=== PATIENT | male | born 1945 | race Caucasian/White ===

== ENCOUNTER 2016-10-15 13:29 | Inpatient (IN) | payer OTHER ==
[2016-10-15 13:43] VITALS: BMI 20.9
--- NOTE | 2016-10-15 13:46 | PDOC ---
History of Present Illness <Yonas Myers - Last Filed: 10/15/16 16:06> - General History Source: Patient Exam Limitations: No Limitations - History of Present Illness Initial Comments: 10/15/16 14:24 The patient is a 71-year-old man, accompanied by his nephew, with a significant past medical history of hypertension and liver cirrhosis who was sent to the emergency department via EMS, by his primary care physician, Dr. Neil Esqueda to rule out hepatic encephalopathy. As per patient's nephew, the patient has not been sober for the past 40 years. He recently stopped drinking approximately 3 weeks ago, secondary to constant diffuse abdominal pain with ascites and jaundice. His nephew also states that the patient has been more confused than usual and his gait is wider. Patient also complains of mild-moderate suprapubic pain, described as a burning sensation, for which he states that he has a ventral hernia. No other complaints. Allergies: No Known Drug Allergies Past Surgical History: None reported. Social History: No tobacco use. EtOH abuse (pint of vodka/day for the past 40 years; recently quit approximately 3 weeks ago). No recreational drug use. Primary Care Physician: Dr. Neil Esqueda <Ashley Yo - Last Filed: 10/15/16 17:44> - General Chief Complaint: Jaundice Stated Complaint: Right groin pain, hernia Time Seen by Provider: 10/15/16 13:45 Past History - Past Medical History HTN: Yes Liver Disease: Yes (CIRRHOSIS.) - Psycho/Social/Smoking Cessation Hx Anxiety: No Suicidal Ideation: No Smoking History: Never smoked Hx Alcohol Use: No Drug/Substance Use Hx: No Substance Use Type: None <Yonas Myers - Last Filed: 10/15/16 16:06> <Ashley Yo - Last Filed: 10/15/16 17:44> - Past Medical History Allergies/Adverse Reactions: Allergies Allergy/AdvReac Type Severity Reaction Status Date / Time No Known Allergies Allergy Verified 10/15/16 13:35 Home Medications: Ambulatory Orders Amlodipine Besylate [Norvasc -] 2.5 mg PO DAILY 10/15/16 Atenolol [Tenormin -] 100 mg PO DAILY 10/15/16 Esomeprazole Mag Trihydrate [NexIUM for SUSP] 40 mg PO BID 10/15/16 Gabapentin 300 mg PO BID 10/15/16 Naproxen/Esomeprazole Mag [Vimovo Dr 500-20 mg Tablet] 1 each PO BID 10/15/16 Tamsulosin HCl [Flomax] 0.4 mg PO DAILY 10/15/16 Review of Systems - Review of Systems Able to Perform ROS?: Yes Comments:: 10/15/16 14:24 GENERAL/CONSTITUTIONAL: No fever or chills. No weakness. HEAD, EYES, EARS, NOSE AND THROAT: No change in vision. No ear pain or discharge. No sore throat. CARDIOVASCULAR: No chest pain or shortness of breath. RESPIRATORY: No cough, wheezing, or hemoptysis. GASTROINTESTINAL: Yes: Abdominal Pain. No nausea, vomiting, diarrhea or constipation. GENITOURINARY: No dysuria, frequency, or change in urination. MUSCULOSKELETAL: No joint or muscle swelling or pain. No neck or back pain. SKIN: Yes: Jaundice. No rash NEUROLOGIC: Yes: Unsteady gait. Confusion. No headache, vertigo, loss of consciousness, or change in strength/sensation. ENDOCRINE: No increased thirst. No abnormal weight change. HEMATOLOGIC/LYMPHATIC: No anemia, easy bleeding, or history of blood clots. ALLERGIC/IMMUNOLOGIC: No hives or skin allergy. <Ashley Yo - Last Filed: 10/15/16 17:44> *Physical Exam - Vital Signs Last Vital Signs Temp Pulse Resp BP Pulse Ox 97.6 F 98 H 18 161/103 100 10/15/16 13:35 10/15/16 13:35 10/15/16 13:35 10/15/16 13:35 10/15/16 13:35 <Yonas Myers - Last Filed: 10/15/16 16:06> - Vital Signs Last Vital Signs Temp Pulse Resp BP Pulse Ox 97.6 F 98 H 18 161/103 98 10/15/16 13:35 10/15/16 13:35 10/15/16 13:35 10/15/16 13:35 10/15/16 13:45 - Physical Exam Comments: 10/15/16 14:25 GENERAL: Awake, alert, and fully oriented, in no acute distress HEAD: No signs of trauma EYES: PERRLA, EOMI, sclera icteric, conjunctiva clear ENT: Auricles normal inspection, hearing grossly normal, nares patent, oropharynx clear without exudates. Moist mucosa NECK: Normal ROM, supple, no lymphadenopathy, JVD, or masses LUNGS: Breath sounds equal, clear to auscultation bilaterally. No wheezes, and no crackles HEART: Irregularly irregular rate and rhythm, no murmurs, rubs or gallops ABDOMEN: Soft, nontender, distended abdomen, normoactive bowel sounds. No guarding, no rebound. No masses EXTREMITIES: Normal range of motion, no edema. No clubbing or cyanosis. No cords, erythema, or tenderness NEUROLOGICAL: Cranial nerves II through XII grossly intact. Normal speech. <Ashley Yo - Last Filed: 10/15/16 17:44> Heart Score/ECG Review #1 10/15/16 13:50 Reviewed and interpreted by Dr. Yonas Myers IMPRESSION: Atrial fibrillation with rapid ventricular response at 102 bpm. <Ashley Yo - Last Filed: 10/15/16 17:44> ED Treatment Course - LABORATORY CBC & Chemistry Diagram: 10/15/16 14:07 10/15/16 14:07 <Yonas Myers - Last Filed: 10/15/16 16:06> - LABORATORY CBC & Chemistry Diagram: 10/15/16 14:07 10/15/16 14:07 - RADIOLOGY Radiograph Interpretation: 10/15/16 15:29 EXAM: CT/ABDOMEN PELVIS CT W/O CONTR Interpreted by Dr. Esvin Darling IMPRESSION: Sequential axial images were obtained from the domes of the diaphragm through the symphysis pubis. The study is severely limited without the use of any contrast material. The lung bases are clear. There is a small amount of ascites throughout the abdomen and pelvis, most marked about the liver. The liver is somewhat enlarged. Ill-defined hypodense masses occupy most of the liver, sparing the lateral segment of the left lobe. This appearance is suspicious for a hepatoma. Clinical and laboratory correlation is recommended. The spleen, pancreas, adrenal glands and kidneys demonstrate no significant abnormalities. Examination of the pelvis demonstrates no evidence of pelvic masses, fluid collections or lymphadenopathy. There is a right inguinal hernia that does contain ascitic fluid. There is no evidence of acute bony pathology. EXAM: CT/HEAD CT WITHOUT CONTRAST Interpreted by Dr. Ilya Peck IMPRESSION: Serial axial images of the brain were obtained from foramen magnum to the cranial vertex without intravenous contrast. The study was supplemented with computer-generated coronal and sagittal reconstruction images. Hearing And Speech Assistant image was reviewed. There is no evidence of acute subarachnoid hemorrhage, acute intra -axial or extra-axial fluid collection consistent with subdural or epidural hematoma. No mass effect, midline shift, acute territorial ischemic changes, herniation or edema is present. Normal sarkar matter white matter differentiation. Loss of volume of the brain parenchyma with involutional changes Examination of the bone windows show no fracture. The visualized paranasal sinuses and mastoid air cells are clear. Symmetrical ocular globes. Unremarkable retro-orbital soft tissues. <Ashley Yo - Last Filed: 10/15/16 17:44> Medical Decision Making - Medical Decision Making 10/15/16 15:[address] Dmitri Dudley. 10/15/16 15:[address] Dmitri Dudley. Case was discussed. Accepts case. <Ashley Yo - Last Filed: 10/15/16 17:44> *DC/Admit/Observation/Transfer - Discharge Dispostion Admit: Yes - Attestations Physician Attestion: 10/15/16 13:46 I, Dr. Yonas Myers, attest that this document has been prepared under my direction and personally reviewed by me in its entirety. I further attest, that it accurately reflects all work, treatment, procedures and medical decision -making performed by me. <Yonas Myers - Last Filed: 10/15/16 16:06> - Attestations Scribe Attestion: 10/15/16 14:25 Documentation prepared by Ashley Yo, acting as medical office assistant for Yonas Myers DO. <Ashley Yo - Last Filed: 10/15/16 17:44> Diagnosis at time of Disposition: Hepatocellular carcinoma, Alcoholism Cirrhosis Qualifiers: Hepatic cirrhosis type: alcoholic cirrhosis Ascites presence: with ascites Qualified Code(s): K70.31 - Alcoholic cirrhosis of liver with ascites Liver failure Qualifiers: Liver failure chronicity: subacute Hepatic coma status: without hepatic coma Qualified Code(s): K72.00 - Acute and subacute hepatic failure without coma - Discharge Dispostion Condition at time of disposition: Unchanged/Unknown
[2016-10-15 14:45] LABS: BASOPHIL 0.6 % (0-2.0); EOSINOPHIL 0.4 % (0-4.5); MCH 31.9 pg (25.7-33.7); MCHC 33.2 g/dl (32.0-35.9); MEAN CELL VOLUME 95.9 fl (80-96); MEAN PLT VOLUME 8.9 fl (7.5-11.1); NEUTROPHILS 83.6 % (42.8-82.8); PLATELET COUNT 574 K/MM3 (134-434); RDW 16.6 % (11.9-15.9); WHITE BLOOD COUNT 12.7 K/mm3 (4.0-10.0)
[2016-10-15 14:57] LABS: INR 1.24 (0.82-1.09); PROTHROMBIN TIME (PATIENT) 13.7 SEC (9.98-11.88)
[2016-10-15 15:00] LABS: ACTIVATED PTT 31.1 SECONDS (26.9-34.4)
[2016-10-15 15:24] LABS: ALBUMIN 2.1 g/dl (3.4-5.0); ANION GAP 11 (8-16); BILIRUBIN,DIRECT 5.4 mg/dL (0.0-0.2); BILIRUBIN,TOTAL 6.6 mg/dL (0.2-1.0); CALCIUM 8.9 mg/dL (8.5-10.1); CO2 23 mmol/L (21-32); GLUCOSE,RANDOM 112 mg/dL (74-106); SGPT/ALT 371 U/L (12-78); TOT PROT 6.7 g/dl (6.4-8.2)
[2016-10-15 15:27] LABS: ALK PHOS 969 U/L (45-117); BILIRUBIN,TOTAL 6.7 mg/dL (0.2-1.0); TOT PROT 6.8 g/dl (6.4-8.2)
[2016-10-15 15:32] LABS: URINE APPEARANCE CLEAR; URINE BLOOD NEGATIVE (NEGATIVE); URINE COLOR AMBER; URINE GLUCOSE (UA) NEGATIVE (NEGATIVE); URINE KETONE NEGATIVE (NEGATIVE); URINE LEUK ESTERASE NEGATIVE (NEGATIVE); URINE NITRITE NEGATIVE (NEGATIVE); URINE PROTEIN NEGATIVE (NEGATIVE); URINE UROBILINOGEN 2.0 E.U/dl E.U./dl (0.2-1.0)
[2016-10-15 15:32] LABS: SGOT/AST 860 U/L (15-37)
[2016-10-15] MEDS ORDERED: LORAZEPAM CARPU-JECT 2 MG/ML DISP.SYRIN IM PRN (15:43)
[2016-10-15 15:46] LABS: ALCOHOL < 5.0 mg/dl (0-5)
[2016-10-15] MEDS: amLODIPine BESYLATE 5 MG TABLET (FP) PO SCH (15:56)
[2016-10-15] MEDS: PANTOPRAZOLE 40 MG TABLET (FP) PO SCH (15:56)
[2016-10-15 16:04] LABS: URINE MARIJUANA THC NEGATIVE ng/ml (CUTOFF=50)
--- NOTE | 2016-10-15 19:18 | CON.GI ---
Consult Consult Specialty:: gastroenterology Referred by:: Dr Dudley/ Yin - History of Present Illness History of Present Illness: The patient is a 71-year-old man, accompanied by his nephew, with a significant past medical history of hypertension and liver cirrhosis who was sent to the emergency department via EMS, by his primary care physician, Dr. Neil Esqueda to rule out hepatic encephalopathy. As per patient's nephew, the patient has not been sober for the past 40 years. He recently stopped drinking approximately 3 weeks ago, secondary to constant diffuse abdominal pain with ascites and jaundice. His nephew also states that the patient has been more confused than usual and his gait is wider. Patient also complains of mild-moderate suprapubic pain, described as a burning sensation, for which he states that he has a ventral hernia. No other complaints. This evening he has no complaints and is asymptomatic - Alcohol/Substance Use Hx Alcohol Use: No - Smoking History Smoking history: Never smoked Have you smoked in the past 12 months: No Home Medications - Allergies Allergies/Adverse Reactions: Allergies Allergy/AdvReac Type Severity Reaction Status Date / Time No Known Allergies Allergy Verified 10/15/16 13:35 - Home Medications Home Medications: Ambulatory Orders Amlodipine Besylate [Norvasc -] 2.5 mg PO DAILY 10/15/16 Atenolol [Tenormin -] 100 mg PO DAILY 10/15/16 Esomeprazole Mag Trihydrate [NexIUM for SUSP] 40 mg PO BID 10/15/16 Gabapentin 300 mg PO BID 10/15/16 Naproxen/Esomeprazole Mag [Vimovo Dr 500-20 mg Tablet] 1 each PO BID 10/15/16 Tamsulosin HCl [Flomax] 0.4 mg PO DAILY 10/15/16 Review of Systems - Review of Systems Constitutional: denies: Fever Eyes: denies: Blind Spots Neck: denies: Decreased ROM Cardiovascular: denies: Chest Pain Respiratory: denies: Cough Gastrointestinal: denies: Abdominal Pain, Bloating, Constipation, Diarrhea, Dysphagia, Indigestion, Melena, Nausea, Rectal Bleeding, Vomiting, Vomiting Blood Physical Exam-GI Vital Signs: Vital Signs Temperature 97.8 F 10/15/16 17:31 Pulse Rate 103 H 10/15/16 17:31 Respiratory Rate 20 10/15/16 17:31 Blood Pressure 119/74 10/15/16 17:31 O2 Sat by Pulse Oximetry (%) 100 10/15/16 17:31 Constitutional: Yes: No Distress Eyes: Yes: Sclera Icterus HENT: No: Atraumatic Neck: No: Supple Cardiovascular: No: Regular Rate and Rhythm Respiratory: No: CTA Bilaterally ...Palpate: Yes: Hepatomegaly (-about 12 fingerbreaths below th right subcostal margin), Soft. No: Firm/Rigid, Guarding, Splenomegaly, Tenderness, Rebound ...Percussion: Yes: Dullness Neurological: Yes: Alert, Oriented Labs: INR, PTT INR 1.24 (0.82-1.09) H 10/15/16 14:07 CBC,CMP WBC 12.7 K/mm3 (4.0-10.0) H 10/15/16 14:07 RBC 3.65 M/mm3 (4.00-5.60) L 10/15/16 14:07 Hgb 11.6 GM/dL (11.7-16.9) L 10/15/16 14:07 Hct 35.0 % (35.4-49) L 10/15/16 14:07 MCV 95.9 fl (80-96) 10/15/16 14:07 MCHC 33.2 g/dl (32.0-35.9) 10/15/16 14:07 RDW 16.6 % (11.9-15.9) H 10/15/16 14:07 Plt Count 574 K/MM3 (134-434) H 10/15/16 14:07 MPV 8.9 fl (7.5-11.1) 10/15/16 14:07 Neutrophils % 83.6 % (42.8-82.8) H 10/15/16 14:07 Lymphocytes % 9.6 % (8-40) 10/15/16 14:07 Monocytes % 5.8 % (3.8-10.2) 10/15/16 14:07 Eosinophils % 0.4 % (0-4.5) 10/15/16 14:07 Basophils % 0.6 % (0-2.0) 10/15/16 14:07 Sodium 135 mmol/L (136-145) L 10/15/16 14:07 Potassium 4.0 mmol/L (3.5-5.1) 10/15/16 14:07 Chloride 101 mmol/L (98-107) 10/15/16 14:07 Carbon Dioxide 23 mmol/L (21-32) 10/15/16 14:07 Anion Gap 11 (8-16) 10/15/16 14:07 BUN 14 mg/dL (7-18) 10/15/16 14:07 Creatinine 1.0 mg/dL (0.7-1.3) 10/15/16 14:07 Creat Clearance w eGFR > 60 (>60) 10/15/16 14:07 Random Glucose 112 mg/dL (74-106) H 10/15/16 14:07 Calcium 8.9 mg/dL (8.5-10.1) 10/15/16 14:07 Total Bilirubin 6.7 mg/dL (0.2-1.0) H 10/15/16 14:07 Direct Bilirubin 5.4 mg/dL (0.0-0.2) H 10/15/16 14:07 AST 860 U/L (15-37) H 10/15/16 14:07 ALT 371 U/L (12-78) H 10/15/16 14:07 Alkaline Phosphatase 969 U/L (45-117) H 10/15/16 14:07 Ammonia 43.6 umol/L (11-32) H 10/15/16 14:07 Total Protein 6.8 g/dl (6.4-8.2) 10/15/16 14:07 Albumin 2.1 g/dl (3.4-5.0) L 10/15/16 14:07 Lipase 69 U/L (73-393) L 10/15/16 14:07 Imaging - Results Cat Scan: Image Reviewed (large masses occupying the entire liver) Problem List - Problems (1) Neoplasm of liver Assessment/Plan: most likely hepatoma R> afp LEVEL if greater than 200 this is diagnostic Hep profile CEA, ca19-9 ammonia level
[2016-10-15] MEDS: METOPROLOL TARTRATE 50 MG TABLET (FP) PO SCH (21:10)
[2016-10-15] MEDS ORDERED: GABAPENTIN 300 MG CAPSULE (FP) PO SCH (22:00)
[2016-10-16] MEDS: TAMSULOSIN HCL 0.4 MG CAP.ER.24H (FP) PO SCH (07:55)
--- NOTE | 2016-10-16 11:15 | HP ---
Admitting History and Physical - Primary Care Physician PCP: Dmitri Dudley - Admission Chief Complaint: NEW ONSET TRANSAMINITIS/LIVER CANCER History of Present Illness: 71 Y/O ALCOHOL DEPENDENCE NOW 3 WEEKS WITHOUT A DRINK PRESENTS WITH WEAKNESS, ABD PAIN, LOSS OF APPETITE AND WEIGHT FOUND TO HAVE LIVER HEPATOMA ON CT SCAN. History Source: Medical Record - Smoking History Smoking history: Never smoked Have you smoked in the past 12 months: No - Alcohol/Substance Use Hx Alcohol Use: No Home Medications - Allergies Allergies/Adverse Reactions: Allergies Allergy/AdvReac Type Severity Reaction Status Date / Time No Known Allergies Allergy Verified 10/15/16 13:35 - Home Medications Home Medications: Ambulatory Orders Amlodipine Besylate [Norvasc -] 2.5 mg PO DAILY 10/15/16 Atenolol [Tenormin -] 100 mg PO DAILY 10/15/16 Esomeprazole Mag Trihydrate [NexIUM for SUSP] 40 mg PO BID 10/15/16 Gabapentin 300 mg PO BID 10/15/16 Naproxen/Esomeprazole Mag [Vimovo Dr 500-20 mg Tablet] 1 each PO BID 10/15/16 Tamsulosin HCl [Flomax] 0.4 mg PO DAILY 10/15/16 Review of Systems - Review of Systems Constitutional: reports: Lethargy, Loss of Appetite, Unintentional Wgt. Loss, Weakness Eyes: reports: No Symptoms HENT: reports: No Symptoms Neck: reports: No Symptoms Cardiovascular: reports: No Symptoms Respiratory: reports: No Symptoms Gastrointestinal: reports: Abdominal Pain Genitourinary: reports: No Symptoms Musculoskeletal: reports: Muscle Weakness Integumentary: reports: No Symptoms Neurological: reports: Parasthesia, Pre-Existing Deficit, Tremors, Weakness Endocrine: reports: No Symptoms Hematology/Lymphatic: reports: No Symptoms Psychiatric: reports: No Symptoms Physical Examination Vital Signs: Vital Signs Temperature 98.5 F 10/15/16 22:00 Pulse Rate 100 H 10/15/16 22:00 Respiratory Rate 18 10/15/16 22:00 Blood Pressure 120/78 10/15/16 22:00 O2 Sat by Pulse Oximetry (%) 98 10/15/16 22:00 Constitutional: Yes: Mild Distress Eyes: Yes: WNL HENT: Yes: WNL Neck: Yes: WNL Cardiovascular: Yes: WNL Respiratory: Yes: WNL Gastrointestinal: Yes: Distention, Tenderness Renal/: Yes: Other Musculoskeletal: Yes: Muscle Weakness Extremities: Yes: WNL Edema: No Peripheral Pulses WNL: Yes Integumentary: Yes: WNL Wound/Incision: Yes: Clean/Dry Neurological: Yes: Pre-Existing Deficit, Tremors, Unsteady Gait, Weakness ...Motor Strength: LLE, RLE Psychiatric: Yes: Other Imaging - Results Cat Scan: Report Reviewed Problem List - Problems (1) Alcoholism Code(s): F10.20 - ALCOHOL DEPENDENCE, UNCOMPLICATED (2) Cirrhosis Code(s): K74.60 - UNSPECIFIED CIRRHOSIS OF LIVER Qualifiers: Hepatic cirrhosis type: alcoholic cirrhosis Ascites presence: with ascites Qualified Code(s): K70.31 - Alcoholic cirrhosis of liver with ascites (3) Hepatocellular carcinoma Code(s): C22.0 - LIVER CELL CARCINOMA (4) Liver failure Code(s): K72.90 - HEPATIC FAILURE, UNSPECIFIED WITHOUT COMA Qualifiers: Liver failure chronicity: subacute Hepatic coma status: without hepatic coma Qualified Code(s): K72.00 - Acute and subacute hepatic failure without coma Assessment/Plan GI WORKUP IN PROGRESS ONCOLOGY EVAL SEIZURE AND NEURO CHECKS ATIVAN PRN WILL NEED NUTRITION EVAL THIAMINE STARTED
[2016-10-16] MEDS: PANTOPRAZOLE 40 MG TABLET (FP) PO SCH (12:17)
[2016-10-16] MEDS: METOPROLOL TARTRATE 50 MG TABLET (FP) PO SCH ×2 (12:18→22:58)
[2016-10-16] MEDS: amLODIPine BESYLATE 5 MG TABLET (FP) PO SCH (12:18)
--- NOTE | 2016-10-16 14:49 | CONSULT ---
Consult Consult Specialty:: Nephrology Reason for Consultation:: hyponatremia and fluid management - History of Present Illness Chief Complaint: sent in for increased confusion History of Present Illness: Pt is a 71 year old male with pmhx of liver cirrhosis and htn who was sent in for worsening of mental status. He has history of etoh abuse. He has been sober for about 3 weeks. He was found to be hyponatremic and I was called to evaluate him. He has had abdominal pain. PT does have ascites and jaundice. Pt was accompanied by family on admission. He is becoming increasingly confused. He denies fevers or chills. He complains of suprapubic discomfort. - History Source History Provided By: Family Member, Medical Record - Past Medical History Cardio/Vascular: Yes: HTN Hepatobiliary: Yes: Cirrhosis - Alcohol/Substance Use Hx Alcohol Use: No - Smoking History Smoking history: Never smoked Have you smoked in the past 12 months: No Home Medications - Allergies Allergies/Adverse Reactions: Allergies Allergy/AdvReac Type Severity Reaction Status Date / Time No Known Allergies Allergy Verified 10/15/16 13:35 - Home Medications Home Medications: Ambulatory Orders Amlodipine Besylate [Norvasc -] 2.5 mg PO DAILY 10/15/16 Atenolol [Tenormin -] 100 mg PO DAILY 10/15/16 Esomeprazole Mag Trihydrate [NexIUM for SUSP] 40 mg PO BID 10/15/16 Gabapentin 300 mg PO BID 10/15/16 Naproxen/Esomeprazole Mag [Vimovo Dr 500-20 mg Tablet] 1 each PO BID 10/15/16 Tamsulosin HCl [Flomax] 0.4 mg PO DAILY 10/15/16 Family Disease History - Family Disease History Family History: Denies Review of Systems - Review of Systems Constitutional: reports: No Symptoms Eyes: reports: No Symptoms HENT: reports: No Symptoms Neck: reports: No Symptoms Cardiovascular: reports: No Symptoms Respiratory: reports: No Symptoms Gastrointestinal: reports: Abdominal Pain Genitourinary: reports: No Symptoms Musculoskeletal: reports: No Symptoms Neurological: reports: No Symptoms Endocrine: reports: No Symptoms Hematology/Lymphatic: reports: No Symptoms Physical Exam Vital Signs: Vital Signs Temperature 98.5 F 10/15/16 22:00 Pulse Rate 96 H 10/16/16 10:00 Respiratory Rate 18 10/16/16 10:00 Blood Pressure 116/80 10/16/16 10:00 O2 Sat by Pulse Oximetry (%) 98 10/15/16 22:00 Constitutional: Yes: Calm Eyes: Yes: Sclera Icterus HENT: Yes: Atraumatic Neck: Yes: Supple Cardiovascular: Yes: S1, S2 Respiratory: Yes: CTA Bilaterally Gastrointestinal: Yes: Ascites Renal/: Yes: WNL Musculoskeletal: Yes: WNL Edema: No Neurological: Yes: Oriented Psychiatric: Yes: Oriented Labs: Laboratory Tests 10/15/16 10/15/16 10/15/16 02:30 14:07 14:07 WBC 12.7 H Hgb 11.6 L Plt Count 574 H Sodium 135 L Potassium 4.0 Chloride 101 Carbon Dioxide 23 Anion Gap 11 BUN 14 Creatinine 1.0 Creat Clearance w eGFR > 60 Random Glucose 112 H Calcium 8.9 Total Bilirubin 6.7 H Alkaline Phosphatase 969 H Ammonia Tumor Marker AFP Carcinoembryonic Ag Pending CA 19-9 Antigen Urine Color Urine Appearance Urine pH Ur Specific [place] Urine Protein Urine Glucose (UA) Urine Ketones Urine Blood Urine Nitrite Urine Bilirubin Urine Urobilinogen Ur Leukocyte Esterase 10/15/16 10/15/16 10/15/16 14:07 14:07 15:22 WBC Hgb Plt Count Sodium Potassium Chloride Carbon Dioxide Anion Gap BUN Creatinine Creat Clearance w eGFR Random Glucose Calcium Total Bilirubin 6.6 H Alkaline Phosphatase Ammonia 43.6 H Tumor Marker AFP Carcinoembryonic Ag CA 19-9 Antigen Urine Color [place] Urine Appearance Clear Urine pH 6.0 Ur Specific [place] 1.015 Urine Protein Negative Urine Glucose (UA) Negative Urine Ketones Negative Urine Blood Negative Urine Nitrite Negative Urine Bilirubin 2.0 Urine Urobilinogen 2.0 e.u/dl Ur Leukocyte Esterase Negative 10/16/16 06:35 WBC Hgb Plt Count Sodium Potassium Chloride Carbon Dioxide Anion Gap BUN Creatinine Creat Clearance w eGFR Random Glucose Calcium Total Bilirubin Alkaline Phosphatase Ammonia Tumor Marker AFP Pending Carcinoembryonic Ag CA 19-9 Antigen Pending Urine Color Urine Appearance Urine pH Ur Specific [place] Urine Protein Urine Glucose (UA) Urine Ketones Urine Blood Urine Nitrite Urine Bilirubin Urine Urobilinogen Ur Leukocyte Esterase Imaging - Results Cat Scan: Report Reviewed (ascites) Problem List - Problems (1) Alcoholism Code(s): F10.20 - ALCOHOL DEPENDENCE, UNCOMPLICATED (2) Cirrhosis Code(s): K74.60 - UNSPECIFIED CIRRHOSIS OF LIVER Qualifiers: Hepatic cirrhosis type: alcoholic cirrhosis Ascites presence: with ascites Qualified Code(s): K70.31 - Alcoholic cirrhosis of liver with ascites (3) Hepatocellular carcinoma Code(s): C22.0 - LIVER CELL CARCINOMA (4) Liver failure Code(s): K72.90 - HEPATIC FAILURE, UNSPECIFIED WITHOUT COMA Qualifiers: Liver failure chronicity: subacute Hepatic coma status: without hepatic coma Qualified Code(s): K72.00 - Acute and subacute hepatic failure without coma (6) Hyponatremia Code(s): E87.1 - HYPO-OSMOLALITY AND HYPONATREMIA Assessment/Plan Current Medications Generic Name Dose Route Start Last Admin Trade Name Freq PRN Reason Stop Dose Admin Amlodipine Besylate 5 mg 10/15/16 15:45 10/16/16 12:18 Norvasc - PO 5 mg DAILY THIEN Administration Lorazepam 1 mg 10/15/16 15:43 Ativan Injection - IM Q6H PRN ANXIETY Metoprolol Tartrate 50 mg 10/15/16 22:00 10/16/16 12:18 Lopressor - PO 50 mg BID THIEN Administration Pantoprazole Sodium 40 mg 10/15/16 15:45 10/16/16 12:17 Protonix - PO 40 mg DAILY THIEN Administration Tamsulosin HCl 0.4 mg 10/16/16 08:30 10/16/16 07:55 Flomax - PO 0.4 mg DAILY@0830 THIEN Administration Impression 1. hyponatremia mild 2. liver cirrhosis 3. hx of etoh abuse 4. HTN Plan - cont current meds - repeat labs in am - check UA - sodium is mildly low - follow up GI - will assess for diuretics in am - follow up hep studies - follow up tumor markers Dr Ramsey
--- NOTE | 2016-10-16 19:30 | PN ---
GI Progress Note Subjective: comfortable, no new complaints, AFP levels pending - Objective Vital Signs: Vital Signs Temperature 98.3 F 10/16/16 18:37 Pulse Rate 107 H 10/16/16 18:37 Respiratory Rate 20 10/16/16 18:37 Blood Pressure 133/80 10/16/16 18:37 O2 Sat by Pulse Oximetry (%) 94 L 10/16/16 09:00 Constitutional: Well Nourished Eyes: Yes: Conjunctiva Clear HENT: Yes: Atraumatic, Tonsillar Exudate Cardiovascular: Yes: Regular Rate and Rhythm Respiratory: Yes: CTA Bilaterally ...Palpate: Yes: Soft. No: Firm/Rigid, Guarding, Hepatomegaly, Mass, Pulsatile Mass, Splenomegaly, Tenderness Labs: INR, PTT INR 1.24 (0.82-1.09) H 10/15/16 14:07 Problem List - Problems (1) Neoplasm of liver Assessment/Plan: R> await AFP levels
--- NOTE | 2016-10-16 20:22 | CONSULT ---
Consult - text type - Consultation Consultation Note: The patient is a 71-year-old man, with a significant past medical history of hypertension and liver cirrhosis who was admitted with presumed hepatic encephalopathy. He recently stopped drinking approximately 3 weeks ago, secondary to constant diffuse abdominal pain with ascites and jaundice. His nephew noted that the patient has been more confused than usual and his gait is wider. Patient also complains of mild-moderate suprapubic pain, described as a burning sensation, for which he states that he has a ventral hernia. No other complaints. Allergies: No Known Drug Allergies Past Surgical History: None reported. Social History: No tobacco use. EtOH abuse (pint of vodka/day for the past 40 years; recently quit approximately 3 weeks ago). No recreational drug use. Primary Care Physician: Dr. Neil Esqueda - Past Medical History HTN: Yes Liver Disease: Yes (CIRRHOSIS.) - Psycho/Social/Smoking Cessation Hx nonsmoker alcoholic - Past Medical History Allergies/Adverse Reactions: Allergies Allergy/AdvReac Type Severity Reaction Status Date / Time No Known Allergies Allergy Verified 10/15/16 13:35 Home Medications: Ambulatory Orders Amlodipine Besylate [Norvasc -] 2.5 mg PO DAILY 10/15/16 Atenolol [Tenormin -] 100 mg PO DAILY 10/15/16 Esomeprazole Mag Trihydrate [NexIUM for SUSP] 40 mg PO BID 10/15/16 Gabapentin 300 mg PO BID 10/15/16 Naproxen/Esomeprazole Mag [Vimovo Dr 500-20 mg Tablet] 1 each PO BID 10/15/16 Tamsulosin HCl [Flomax] 0.4 mg PO DAILY 10/15/16 - Vital Signs Last Vital Signs Temp Pulse Resp BP Pulse Ox 98.3 F 107 H 20 133/80 94 L 10/16/16 18:37 10/16/16 18:37 10/16/16 18:37 10/16/16 18:37 10/16/16 09:00 Cor: RSR, No murmurs, No gallops Lungs: Clear to P&A Abd: Soft, Normal bowel sounds, ascites++ Ext:No significant edema Skin: No rashes, Integument intact Interpreted by Dr. Esvin Darling IMPRESSION: Sequential axial images were obtained from the domes of the diaphragm through the symphysis pubis. The study is severely limited without the use of any contrast material. The lung bases are clear. There is a small amount of ascites throughout the abdomen and pelvis, most marked about the liver. The liver is somewhat enlarged. Ill-defined hypodense masses occupy most of the liver, sparing the lateral segment of the left lobe. This appearance is suspicious for a hepatoma. Clinical and laboratory correlation is recommended. The spleen, pancreas, adrenal glands and kidneys demonstrate no significant abnormalities. Examination of the pelvis demonstrates no evidence of pelvic masses, fluid collections or lymphadenopathy. There is a right inguinal hernia that does contain ascitic fluid. There is no evidence of acute bony pathology. EXAM: CT/HEAD CT WITHOUT CONTRAST Interpreted by Dr. Ilya Peck IMPRESSION: Serial axial images of the brain were obtained from foramen magnum to the cranial vertex without intravenous contrast. The study was supplemented with computer-generated coronal and sagittal reconstruction images. Faculty Dean image was reviewed. There is no evidence of acute subarachnoid hemorrhage, acute intra -axial or extra-axial fluid collection consistent with subdural or epidural hematoma. No mass effect, midline shift, acute territorial ischemic changes, herniation or edema is present. Normal sarkar matter white matter differentiation. Loss of volume of the brain parenchyma with involutional changes Examination of the bone windows show no fracture. The visualized paranasal sinuses and mastoid air cells are clear. Symmetrical ocular globes. Unremarkable retro-orbital soft tissues. A/P 71 y/o male with presumed alcoholic cirrhosis , admitted with hepatic encephalopathy CT scan revealed nodular cirrhotic liver suspicious for hepatoma CR 1 AFP is pending Albumin --2.1 INR/PTT/CBC --relatively preserved LFTs--ALT 800s Await AFP MAy need MRI abdomen poor performance status check bood cultures/urine cultures
[2016-10-17] MEDS ORDERED: PT OWN MED DRAWER 7, Y5N ONE (03:29)
[2016-10-17] MEDS: TAMSULOSIN HCL 0.4 MG CAP.ER.24H (FP) PO SCH (08:30)
[2016-10-17] MEDS: PANTOPRAZOLE 40 MG TABLET (FP) PO SCH (09:46)
[2016-10-17] MEDS: MULTIVITAMINS (DAILY MVI) TABLET (FP) PO SCH (09:46)
[2016-10-17] MEDS: METOPROLOL TARTRATE 50 MG TABLET (FP) PO SCH ×2 (09:46→21:21)
[2016-10-17] MEDS: FOLIC ACID 1 MG TABLET (FP) PO SCH (09:46)
[2016-10-17] MEDS: amLODIPine BESYLATE 5 MG TABLET (FP) PO SCH (09:46)
--- NOTE | 2016-10-17 12:08 | PN ---
Progress Note, Physician Chief Complaint: patient seen and examined awake alert wants to go home - Current Medication List Current Medications: Active Medications Amlodipine Besylate (Norvasc -) 5 mg PO DAILY [facility] Last Admin: 10/17/16 09:46 Dose: 5 mg Folic Acid (Folic Acid -) 1 mg PO DAILY [facility] Last Admin: 10/17/16 09:46 Dose: 1 mg Lorazepam (Ativan Injection -) 1 mg IM Q6H PRN PRN Reason: ANXIETY Metoprolol Tartrate (Lopressor -) 50 mg PO BID [facility] Last Admin: 10/17/16 09:46 Dose: 50 mg Multivitamins/Minerals/Vitamin C (Tab-A-Vit -) 1 tab PO DAILY [facility] Last Admin: 10/17/16 09:46 Dose: 1 tab Pantoprazole Sodium (Protonix -) 40 mg PO DAILY [facility] Last Admin: 10/17/16 09:46 Dose: 40 mg Tamsulosin HCl (Flomax -) 0.4 mg PO DAILY@0830 [facility] Last Admin: 10/17/16 08:30 Dose: 0.4 mg - Objective Vital Signs: Vital Signs Temperature 98.8 F 10/17/16 06:15 Pulse Rate 91 H 10/17/16 06:15 Respiratory Rate 20 10/17/16 06:15 Blood Pressure 105/60 10/17/16 06:15 O2 Sat by Pulse Oximetry (%) 95 10/16/16 21:00 Eyes: Yes: Sclera Icterus Cardiovascular: Yes: Regular Rate and Rhythm, S1, S2 Respiratory: Yes: CTA Bilaterally Gastrointestinal: Yes: Soft, Hepatomegaly Neurological: Yes: Alert, Oriented Labs: INR, PTT INR 1.24 (0.82-1.09) H 10/15/16 14:07 Problem List - Problems (1) Hepatocellular carcinoma Assessment/Plan: most likely hepatoma AFP and CA-[id number] elevated MRI of abdomen heme consult noted gi on board Code(s): C22.0 - LIVER CELL CARCINOMA (2) Liver failure Assessment/Plan: see above Code(s): K72.90 - HEPATIC FAILURE, UNSPECIFIED WITHOUT COMA Qualifiers: Liver failure chronicity: subacute Hepatic coma status: without hepatic coma Qualified Code(s): K72.00 - Acute and subacute hepatic failure without coma (3) Hyponatremia Assessment/Plan: repeat sodium today renal on board Code(s): E87.1 - HYPO-OSMOLALITY AND HYPONATREMIA
[2016-10-17 14:11] LABS: ANION GAP 8 (8-16); BILIRUBIN,TOTAL 7.2 mg/dL (0.2-1.0); CALCIUM 8.8 mg/dL (8.5-10.1); CO2 28 mmol/L (21-32); CREATININE 0.9 mg/dL (0.7-1.3); GLUCOSE,RANDOM 101 mg/dL (74-106); SGOT/AST 944 U/L (15-37); SGPT/ALT 397 U/L (12-78); TOT PROT 6.3 g/dl (6.4-8.2)
[2016-10-17 14:23] LABS: ALK PHOS 1001 U/L (45-117)
--- NOTE | 2016-10-17 16:02 | PN ---
Progress Note, Physician History of Present Illness: Pt seen and examined. He is awake and appears comfortable. he denies shortness of breath. - Current Medication List Current Medications: Active Medications Amlodipine Besylate (Norvasc -) 5 mg PO DAILY [facility] Last Admin: 10/17/16 09:46 Dose: 5 mg Folic Acid (Folic Acid -) 1 mg PO DAILY [facility] Last Admin: 10/17/16 09:46 Dose: 1 mg Lorazepam (Ativan Injection -) 1 mg IM Q6H PRN PRN Reason: ANXIETY Metoprolol Tartrate (Lopressor -) 50 mg PO BID [facility] Last Admin: 10/17/16 09:46 Dose: 50 mg Multivitamins/Minerals/Vitamin C (Tab-A-Vit -) 1 tab PO DAILY [facility] Last Admin: 10/17/16 09:46 Dose: 1 tab Pantoprazole Sodium (Protonix -) 40 mg PO DAILY [facility] Last Admin: 10/17/16 09:46 Dose: 40 mg Tamsulosin HCl (Flomax -) 0.4 mg PO DAILY@0830 [facility] Last Admin: 10/17/16 08:30 Dose: 0.4 mg - Objective Vital Signs: Vital Signs Temperature 98.3 F 10/17/16 14:43 Pulse Rate 101 H 10/17/16 14:43 Respiratory Rate 20 10/17/16 14:43 Blood Pressure 127/65 10/17/16 14:43 O2 Sat by Pulse Oximetry (%) 95 10/16/16 21:00 Constitutional: Yes: Calm Eyes: Yes: Sclera Icterus HENT: Yes: Atraumatic Cardiovascular: Yes: WNL, S1, S2 Gastrointestinal: Yes: Ascites Genitourinary: Yes: WNL Musculoskeletal: Yes: WNL Edema: No Integumentary: Yes: Jaundice Neurological: Yes: Oriented Labs: CBC, BMP 10/17/16 13:20 INR, PTT INR 1.24 (0.82-1.09) H 10/15/16 14:07 Problem List - Problems (1) Alcoholism Code(s): F10.20 - ALCOHOL DEPENDENCE, UNCOMPLICATED (2) Cirrhosis Code(s): K74.60 - UNSPECIFIED CIRRHOSIS OF LIVER Qualifiers: Hepatic cirrhosis type: alcoholic cirrhosis Ascites presence: with ascites Qualified Code(s): K70.31 - Alcoholic cirrhosis of liver with ascites (3) Hepatocellular carcinoma Code(s): C22.0 - LIVER CELL CARCINOMA (4) Liver failure Code(s): K72.90 - HEPATIC FAILURE, UNSPECIFIED WITHOUT COMA Qualifiers: Liver failure chronicity: subacute Hepatic coma status: without hepatic coma Qualified Code(s): K72.00 - Acute and subacute hepatic failure without coma (6) Hyponatremia Code(s): E87.1 - HYPO-OSMOLALITY AND HYPONATREMIA Assessment/Plan Current Medications Generic Name Dose Route Start Last Admin Trade Name Freq PRN Reason Stop Dose Admin Amlodipine Besylate 5 mg 10/15/16 15:45 10/17/16 09:46 Norvasc - PO 5 mg DAILY [facility] Administration Folic Acid 1 mg 10/17/16 10:00 10/17/16 09:46 Folic Acid - PO 1 mg DAILY [facility] Administration Lorazepam 1 mg 10/15/16 15:43 Ativan Injection - IM Q6H PRN ANXIETY Metoprolol Tartrate 50 mg 10/15/16 22:00 10/17/16 09:46 Lopressor - PO 50 mg BID [facility]IEN Administration Multivitamins/Minerals/Vitamin C 1 tab 10/17/16 10:00 10/17/16 09:46 Tab-A-Vit - PO 1 tab DAILY [facility] Administration Pantoprazole Sodium 40 mg 10/15/16 15:45 10/17/16 09:46 Protonix - PO 40 mg DAILY [facility] Administration Tamsulosin HCl 0.4 mg 10/16/16 08:30 10/17/16 08:30 Flomax - PO 0.4 mg DAILY@0830 [facility] Administration Laboratory Tests 10/15/16 10/15/16 10/16/16 14:07 15:22 06:35 Sodium Tumor Marker AFP 96.8 H CA 19-9 Antigen 65 H Urine Color Sisi Urine Appearance Clear Urine pH 6.0 Ur Specific [place] 1.015 Urine Protein Negative Urine Glucose (UA) Negative Urine Ketones Negative Urine Blood Negative Urine Nitrite Negative Urine Bilirubin 2.0 Urine Urobilinogen 2.0 e.u/dl Ur Leukocyte Esterase Negative Hepatitis A Ab Total Pending Hep Bs Antigen Pending Hep Bs Antibody Pending Hep B Core Total Ab Pending 10/17/16 13:20 Sodium 135 L Tumor Marker AFP CA 19-9 Antigen Urine Color Urine Appearance Urine pH Ur Specific [place] Urine Protein Urine Glucose (UA) Urine Ketones Urine Blood Urine Nitrite Urine Bilirubin Urine Urobilinogen Ur Leukocyte Esterase Hepatitis A Ab Total Hep Bs Antigen Hep Bs Antibody Hep B Core Total Ab Impression 1. hyponatremia mild 2. liver cirrhosis 3. hx of etoh abuse 4. HTN Plan - repeat sodium is still low - will check osms and lytes - check cortisol and tsh - repeat labs in am - GI workup in progress - will hold off diuretics today - follow up hep studies - follow up tumor markers Dr Ramsey
--- NOTE | 2016-10-17 17:29 | EKG ---
Test Reason : Blood Pressure : / mmHG Vent. Rate : 102 BPM Atrial Rate : 113 BPM P-R Int : 000 ms QRS Dur : 076 ms QT Int : 328 ms P-R-T Axes : 000 -23 -23 degrees QTc Int : 427 ms ATRIAL FIBRILLATION WITH RAPID VENTRICULAR RESPONSE SEPTAL INFARCT , AGE UNDETERMINED ABNORMAL ECG NO PREVIOUS ECGS AVAILABLE Confirmed by MD LYNDSEY, NABIL ([id number]) on 10/17/2016 5:28:58 PM Referred By: Confirmed By:NABIL SOLORIO MD
--- NOTE | 2016-10-17 17:51 | PN ---
Progress Note (short form) - Note Progress Note: Patient seen and examined Complains of pain secondary to right inguinal hernia . Unable to walk secondary to this. Does not complain of abdominal pains. 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
[2016-10-17 20:39] LABS: OSMOLALITY,SERUM 276 mosm/kg (278-305)
[2016-10-18 00:07] LABS: HEP B SURFACE AB Reactive (.)
[2016-10-18 07:47] LABS: BASOPHIL 0.9 % (0-2.0); MCH 32.1 pg (25.7-33.7); MCHC 33.3 g/dl (32.0-35.9); MEAN CELL VOLUME 96.3 fl (80-96); MEAN PLT VOLUME 9.6 fl (7.5-11.1); NEUTROPHILS 76.3 % (42.8-82.8); PLATELET COUNT 422 K/MM3 (134-434); RDW 16.7 % (11.9-15.9); WHITE BLOOD COUNT 8.4 K/mm3 (4.0-10.0)
[2016-10-18 07:55] LABS: ANION GAP 9 (8-16); BILIRUBIN,TOTAL 7.5 mg/dL (0.2-1.0); CALCIUM 8.7 mg/dL (8.5-10.1); CO2 27 mmol/L (21-32); CREATININE 0.9 mg/dL (0.7-1.3); GLUCOSE,RANDOM 88 mg/dL (74-106); SGPT/ALT 394 U/L (12-78); TOT PROT 6.2 g/dl (6.4-8.2)
[2016-10-18 08:06] LABS: ALK PHOS 971 U/L (45-117); THYROID STIMULATING HORMONE 4.81 uIU/ml (0.358-3.74)
[2016-10-18 08:09] LABS: SGOT/AST 944 U/L (15-37)
--- NOTE | 2016-10-18 08:37 | PN ---
Progress Note, Physician History of Present Illness: 71-year-old man, accompanied by his nephew, with a significant past medical history of hypertension and liver cirrhosis who was sent to the emergency department via EMS, by his primary care physician, Dr. Neil Esqueda to rule out hepatic encephalopathy. As per patient's nephew, the patient has not been sober for the past 40 years. He recently stopped drinking approximately 3 weeks ago, secondary to constant diffuse abdominal pain with ascites and jaundice. His nephew also states that the patient has been more confused than usual and his gait is wider. Patient also complains of mild-moderate suprapubic pain, described as a burning sensation, for which he states that he has a ventral hernia. No other complaints. - Current Medication List Current Medications: Active Medications Amlodipine Besylate (Norvasc -) 5 mg PO DAILY [facility] Last Admin: 10/17/16 09:46 Dose: 5 mg Folic Acid (Folic Acid -) 1 mg PO DAILY [facility] Last Admin: 10/17/16 09:46 Dose: 1 mg Lorazepam (Ativan Injection -) 1 mg IM Q6H PRN PRN Reason: ANXIETY Metoprolol Tartrate (Lopressor -) 50 mg PO BID [facility] Last Admin: 10/17/16 21:21 Dose: 50 mg Multivitamins/Minerals/Vitamin C (Tab-A-Vit -) 1 tab PO DAILY [facility] Last Admin: 10/17/16 09:46 Dose: 1 tab Pantoprazole Sodium (Protonix -) 40 mg PO DAILY [facility] Last Admin: 10/17/16 09:46 Dose: 40 mg Tamsulosin HCl (Flomax -) 0.4 mg PO DAILY@0830 [facility] Last Admin: 10/17/16 08:30 Dose: 0.4 mg - Objective Vital Signs: Vital Signs Temperature 97.7 F 10/18/16 06:05 Pulse Rate 86 10/18/16 06:05 Respiratory Rate 18 10/18/16 06:05 Blood Pressure 110/76 10/18/16 06:05 O2 Sat by Pulse Oximetry (%) 97 10/17/16 21:00 Cardiovascular: Yes: Regular Rate and Rhythm Respiratory: Yes: Regular, CTA Bilaterally Gastrointestinal: Yes: Normal Bowel Sounds, Soft, Ascites, Distention Labs: CBC, BMP 10/18/16 06:00 10/18/16 06:00 INR, PTT INR 1.24 (0.82-1.09) H 10/15/16 14:07 Problem List - Problems (1) Alcoholism Assessment/Plan: MONITOR NO S/S OF WITHDRAWALS Code(s): F10.20 - ALCOHOL DEPENDENCE, UNCOMPLICATED (2) Cirrhosis Assessment/Plan: W/U PER GI MONITOR Code(s): K74.60 - UNSPECIFIED CIRRHOSIS OF LIVER Qualifiers: Hepatic cirrhosis type: alcoholic cirrhosis Ascites presence: with ascites Qualified Code(s): K70.31 - Alcoholic cirrhosis of liver with ascites (3) Neoplasm of liver Assessment/Plan: WILL NEED BIOPSY (4) Afib Assessment/Plan: OF UNKNOWN DURATION EKG CARDIO HIGH RISK OF BLEEDING--DEFER AC Code(s): I48.91 - UNSPECIFIED ATRIAL FIBRILLATION (5) Inguinal hernia Assessment/Plan: SURGICAL CONSULT Code(s): K40.90 - UNIL INGUINAL HERNIA, W/O OBST OR GANGR, NOT SPCF RECUR
[2016-10-18 09:07] LABS: TROPONIN I < 0.02 ng/ml (0.00-0.05)
[2016-10-18] MEDS: TAMSULOSIN HCL 0.4 MG CAP.ER.24H (FP) PO SCH (09:09)
[2016-10-18] MEDS: METOPROLOL TARTRATE 50 MG TABLET (FP) PO SCH ×2 (09:09→21:08)
[2016-10-18] MEDS: amLODIPine BESYLATE 5 MG TABLET (FP) PO SCH (09:09)
[2016-10-18] MEDS: FOLIC ACID 1 MG TABLET (FP) PO SCH (09:09)
[2016-10-18] MEDS: PANTOPRAZOLE 40 MG TABLET (FP) PO SCH (09:09)
[2016-10-18] MEDS: MULTIVITAMINS (DAILY MVI) TABLET (FP) PO SCH (09:09)
--- NOTE | 2016-10-18 12:41 | PN ---
Progress Note (short form) - Note Progress Note: Patient seen and examined Complains of pain secondary to right inguinal hernia . Unable to walk secondary to this. Does not complain of abdominal pains. Vital Signs Period Temp Pulse Resp BP Sys/Lezama Pulse Ox Last 24 Hr 97.7 F-98.7 F 86-109 18-20 105-130/65-76 95-97 HEENT: OBIE, EOM Intact Oropharynx: No thrush, No mucositis Abd: Soft, Normal bowel sounds, liver 8 cm below xiphoid , fluid wave Ext:No significant edema Skin: No rashes, Integument intact right inguinal reducible hernia CBC, BMP 10/18/16 06:00 10/18/16 06:00 Current Medications Generic Name Dose Route Start Last Admin Trade Name Freq PRN Reason Stop Dose Admin Amlodipine Besylate 5 mg 10/15/16 15:45 10/18/16 09:09 Norvasc - PO 5 mg DAILY [facility] Administration Folic Acid 1 mg 10/17/16 10:00 10/18/16 09:09 Folic Acid - PO 1 mg DAILY [facility] Administration Lorazepam 1 mg 10/15/16 15:43 Ativan Injection - IM Q6H PRN ANXIETY Metoprolol Tartrate 50 mg 10/15/16 22:00 10/18/16 09:09 Lopressor - PO 50 mg BID [facility] Administration Multivitamins/Minerals/Vitamin C 1 tab 10/17/16 10:00 10/18/16 09:09 Tab-A-Vit - PO 1 tab DAILY [facility] Administration Pantoprazole Sodium 40 mg 10/15/16 15:45 10/18/16 09:09 Protonix - PO 40 mg DAILY [facility] Administration Tamsulosin HCl 0.4 mg 10/16/16 08:30 10/18/16 09:09 Flomax - PO 0.4 mg DAILY@0830 [facility] Administration 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
--- NOTE | 2016-10-18 12:41 | CONSULT ---
Consult Consult Specialty:: Surgery Reason for Consultation:: Right inguinal hernia - History of Present Illness History of Present Illness: 71 male with history of liver cirrhosis was sent to the ER to rule out hepatic encephalopathy On exam and CT was noted to have a right inguinal hernia with ascites No nausea Minimal pain - History Source History Provided By: Patient, Medical Record Limitations to Obtaining History: No Limitations - Past Medical History Cardio/Vascular: Yes: HTN Gastrointestinal: Yes: Ascites, Other (Cirrhosis) Hepatobiliary: Yes: Cirrhosis - Alcohol/Substance Use Hx Alcohol Use: No - Smoking History Smoking history: Never smoked Have you smoked in the past 12 months: No Home Medications - Allergies Allergies/Adverse Reactions: Allergies Allergy/AdvReac Type Severity Reaction Status Date / Time No Known Allergies Allergy Verified 10/15/16 13:35 - Home Medications Home Medications: Ambulatory Orders Amlodipine Besylate [Norvasc -] 2.5 mg PO DAILY 10/15/16 Atenolol [Tenormin -] 100 mg PO DAILY 10/15/16 Esomeprazole Mag Trihydrate [NexIUM for SUSP] 40 mg PO BID 10/15/16 Gabapentin 300 mg PO BID 10/15/16 Naproxen/Esomeprazole Mag [Vimovo Dr 500-20 mg Tablet] 1 each PO BID 10/15/16 Tamsulosin HCl [Flomax] 0.4 mg PO DAILY 10/15/16 Physical Exam Vital Signs: Vital Signs Temperature 98.6 F 10/18/16 09:08 Pulse Rate 105 H 10/18/16 09:08 Respiratory Rate 20 10/18/16 09:08 Blood Pressure 105/68 10/18/16 09:08 O2 Sat by Pulse Oximetry (%) 95 10/18/16 09:00 Labs: CBC, BMP 10/18/16 06:00 10/18/16 06:00
--- NOTE | 2016-10-18 13:38 | CON.CARD ---
Consult Consult Specialty:: Cardiology Referred by:: Octavia Reason for Consultation:: Afib - History of Present Illness Chief Complaint: Liver disease/?enchepalopathy History of Present Illness: The patient is a 71-year-old man with a past medical history of hypertension and liver cirrhosis who was sent to the emergency department via EMS, by his primary care physician, Dr. Neil Esqueda to rule out hepatic encephalopathy. Long history of etoh abuse but recently stopped drinking few weeks ago. + ascites and jaundice. As per family, been more confused and gait more unstable. C/o abdominal discomfort. +liver mass on imaging - History Source History Provided By: Patient, Medical Record - Past Medical History Cardio/Vascular: Yes: HTN Gastrointestinal: Yes: Ascites, Other (Cirrhosis) Hepatobiliary: Yes: Cirrhosis - Alcohol/Substance Use Hx Alcohol Use: No - Smoking History Smoking history: Never smoked Have you smoked in the past 12 months: No Home Medications - Allergies Allergies/Adverse Reactions: Allergies Allergy/AdvReac Type Severity Reaction Status Date / Time No Known Allergies Allergy Verified 10/15/16 13:35 - Home Medications Home Medications: Ambulatory Orders Amlodipine Besylate [Norvasc -] 2.5 mg PO DAILY 10/15/16 Atenolol [Tenormin -] 100 mg PO DAILY 10/15/16 Esomeprazole Mag Trihydrate [NexIUM for SUSP] 40 mg PO BID 10/15/16 Gabapentin 300 mg PO BID 10/15/16 Naproxen/Esomeprazole Mag [Vimovo Dr 500-20 mg Tablet] 1 each PO BID 10/15/16 Tamsulosin HCl [Flomax] 0.4 mg PO DAILY 10/15/16 Vital Signs: Vital Signs Temperature 98.6 F 10/18/16 09:08 Pulse Rate 105 H 10/18/16 09:08 Respiratory Rate 20 10/18/16 09:08 Blood Pressure 105/68 10/18/16 09:08 O2 Sat by Pulse Oximetry (%) 95 10/18/16 09:00 Neck: Yes: Supple Respiratory: Yes: CTA Bilaterally Gastrointestinal: Yes: Ascites Cardiovascular: No: Regular Rate and Rhythm JVD: No Heart Sounds: Yes: S1, S2 Murmur: No: Systolic Murmur - Other Data Labs, Other Data: CBC, BMP 10/18/16 06:00 10/18/16 06:00 INR, PTT INR 1.24 (0.82-1.09) H 10/15/16 14:07 Troponin, BNP 10/18/16 10/18/16 06:00 08:45 Troponin I < 0.02 Cancelled Troponin, BNP 10/18/16 10/18/16 06:00 08:45 Troponin I < 0.02 Cancelled Imaging - Results Chest X-ray: Report Reviewed, Image Reviewed EKG: Image Reviewed Problem List - Problems (1) Afib Code(s): I48.91 - UNSPECIFIED ATRIAL FIBRILLATION Assessment/Plan The patient is a 71-year-old man with a past medical history of hypertension and liver cirrhosis who was sent to the emergency department via EMS, by his primary care physician, Dr. Neil Esqueda to rule out hepatic encephalopathy. Long history of etoh abuse but recently stopped drinking few weeks ago. + ascites and jaundice. As per family, been more confused and gait more unstable. C/o abdominal discomfort. +liver mass on imaging 1) Afib Found to have afib new onset on ekg on admission. No previous history noted of heart disease. Given history of htn patient is CHADS score of 1. Normal plts, inr 1.2 Given liver cirrhosis, etoh abuse, and worsening gait and mental status patient is at increased risk for bleeding and for falls. Also is there any history of varices? If patient deemed high risk for bleed and is a great fall risk than would not start anticoagulation but if not than indicated. Would also get an echocardiogram Continue metoprolol and uptitrate as BP tolerates and lower CCB if needed Please call with any questions.
--- NOTE | 2016-10-18 14:54 | PN ---
GI Progress Note Subjective: Patient eating lunch Only complaint is large R inguinal hernia AFP 96 [id number] 65 - Objective Vital Signs: Vital Signs Temperature 98.6 F 10/18/16 09:08 Pulse Rate 105 H 10/18/16 09:08 Respiratory Rate 20 10/18/16 09:08 Blood Pressure 105/68 10/18/16 09:08 O2 Sat by Pulse Oximetry (%) 95 10/18/16 09:00 Constitutional: Thin Cardiovascular: Yes: Regular Rate and Rhythm Respiratory: Yes: CTA Bilaterally Gastrointestinal Inspection: Yes: Ascites ...Auscultate: Yes: Normoactive Bowel Sounds ...Percussion: Yes: Fluid Wave Labs: CBC, BMP 10/18/16 06:00 10/18/16 06:00 INR, PTT INR 1.24 (0.82-1.09) H 10/15/16 14:07 Hepatic Panel Total Bilirubin 7.5 mg/dL (0.2-1.0) H 10/18/16 06:00 Direct Bilirubin 5.4 mg/dL (0.0-0.2) H 10/15/16 14:07 AST 944 U/L (15-37) H 10/18/16 06:00 ALT 394 U/L (12-78) H 10/18/16 06:00 Alkaline Phosphatase 971 U/L (45-117) H 10/18/16 06:00 Albumin 2.0 g/dl (3.4-5.0) L 10/18/16 06:00 - ....Imaging Cat Scan: Report Reviewed (Multiple liver lesions c/w hepatocellular ca) Assessment/Plan 71 M with above history and tumor markers suggesting HCC Oncology on case H/O ETOH cirrhosis Rec In the context of HCC, likely intrahepatic obstruction. Would not respond to standard treatment for portal HTN. Lactulose and rifaximin for prevention of encephalopathy On Naproxen at home which should be discontinued
--- NOTE | 2016-10-18 14:56 | EKG ---
Test Reason : Blood Pressure : / mmHG Vent. Rate : 089 BPM Atrial Rate : 111 BPM P-R Int : 000 ms QRS Dur : 074 ms QT Int : 360 ms P-R-T Axes : 000 -17 -10 degrees QTc Int : 438 ms ATRIAL FIBRILLATION ANTERIOR INFARCT (CITED ON OR BEFORE 15-OCT-2016) ABNORMAL ECG WHEN COMPARED WITH ECG OF 15-OCT-2016 13:50, NO SIGNIFICANT CHANGE WAS FOUND Confirmed by JOSE CUTLER MD ([id number]) on 10/18/2016 2:55:30 PM Referred By: IWONA Martinez DR Confirmed By:JOSE CUTLER MD
[2016-10-18] MEDS ORDERED: SPIRONOLACTONE 25 MG TABLET (FP) PO ONE (16:41)
--- NOTE | 2016-10-18 16:41 | PN ---
Progress Note, Physician History of Present Illness: Pt seen and examined at bedside. He is awake and appears comfortable. - Current Medication List Current Medications: Active Medications Amlodipine Besylate (Norvasc -) 5 mg PO DAILY [facility] Last Admin: 10/18/16 09:09 Dose: 5 mg Folic Acid (Folic Acid -) 1 mg PO DAILY [facility] Last Admin: 10/18/16 09:09 Dose: 1 mg Lactulose (Cephulac (Oral Use)) 20 gm PO BID [facility] Lorazepam (Ativan Injection -) 1 mg IM Q6H PRN PRN Reason: ANXIETY Metoprolol Tartrate (Lopressor -) 50 mg PO BID [facility] Last Admin: 10/18/16 09:09 Dose: 50 mg Multivitamins/Minerals/Vitamin C (Tab-A-Vit -) 1 tab PO DAILY [facility] Last Admin: 10/18/16 09:09 Dose: 1 tab Pantoprazole Sodium (Protonix -) 40 mg PO DAILY [facility] Last Admin: 10/18/16 09:09 Dose: 40 mg Rifaximin (Xifaxan -) 550 mg PO BID [facility] Tamsulosin HCl (Flomax -) 0.4 mg PO DAILY@0830 [facility] Last Admin: 10/18/16 09:09 Dose: 0.4 mg - Objective Vital Signs: Vital Signs Temperature 98.0 F 10/18/16 16:00 Pulse Rate 108 H 10/18/16 16:00 Respiratory Rate 20 10/18/16 16:00 Blood Pressure 111/63 10/18/16 16:00 O2 Sat by Pulse Oximetry (%) 95 10/18/16 09:00 Constitutional: Yes: Calm Eyes: Yes: Conjunctiva Clear HENT: Yes: Atraumatic Neck: Yes: Supple Cardiovascular: Yes: S1, S2 Respiratory: Yes: CTA Bilaterally Gastrointestinal: Yes: Ascites Genitourinary: Yes: WNL Musculoskeletal: Yes: WNL Edema: No Neurological: Yes: Oriented Psychiatric: Yes: Oriented Labs: CBC, BMP 10/18/16 06:00 10/18/16 06:00 INR, PTT INR 1.24 (0.82-1.09) H 10/15/16 14:07 Problem List - Problems (1) Alcoholism Code(s): F10.20 - ALCOHOL DEPENDENCE, UNCOMPLICATED (2) Cirrhosis Code(s): K74.60 - UNSPECIFIED CIRRHOSIS OF LIVER Qualifiers: Hepatic cirrhosis type: alcoholic cirrhosis Ascites presence: with ascites Qualified Code(s): K70.31 - Alcoholic cirrhosis of liver with ascites (3) Hepatocellular carcinoma Code(s): C22.0 - LIVER CELL CARCINOMA (4) Liver failure Code(s): K72.90 - HEPATIC FAILURE, UNSPECIFIED WITHOUT COMA Qualifiers: Liver failure chronicity: subacute Hepatic coma status: without hepatic coma Qualified Code(s): K72.00 - Acute and subacute hepatic failure without coma (6) Hyponatremia Code(s): E87.1 - HYPO-OSMOLALITY AND HYPONATREMIA Assessment/Plan Current Medications Generic Name Dose Route Start Last Admin Trade Name Freq PRN Reason Stop Dose Admin Amlodipine Besylate 5 mg 10/15/16 15:45 10/18/16 09:09 Norvasc - PO 5 mg DAILY THIEN Administration Folic Acid 1 mg 10/17/16 10:00 10/18/16 09:09 Folic Acid - PO 1 mg DAILY [facility]IEN Administration Lactulose 20 gm 10/18/16 22:00 Cephulac (Oral Use) PO BID [facility]IEN Lorazepam 1 mg 10/15/16 15:43 Ativan Injection - IM Q6H PRN ANXIETY Metoprolol Tartrate 50 mg 10/15/16 22:00 10/18/16 09:09 Lopressor - PO 50 mg BID THIEN Administration Multivitamins/Minerals/Vitamin C 1 tab 10/17/16 10:00 10/18/16 09:09 Tab-A-Vit - PO 1 tab DAILY [facility]IEN Administration Pantoprazole Sodium 40 mg 10/15/16 15:45 10/18/16 09:09 Protonix - PO 40 mg DAILY THIEN Administration Rifaximin 550 mg 10/18/16 22:00 Xifaxan - PO BID THIEN Tamsulosin HCl 0.4 mg 10/16/16 08:30 10/18/16 09:09 Flomax - PO 0.4 mg DAILY@0830 THIEN Administration Laboratory Tests 10/15/16 10/17/16 10/17/16 14:07 16:00 17:30 Serum Osmolality 276 L TSH Cortisol AM Sample Urine Osmolality 455 Ur Random Sodium 94 Hepatitis A Ab Total Positive H Hep B Core Total Ab Positive H 10/18/16 10/18/16 06:00 06:00 Serum Osmolality TSH 4.81 H Cortisol AM Sample Pending Urine Osmolality Ur Random Sodium Hepatitis A Ab Total Hep B Core Total Ab Impression 1. hyponatremia mild 2. liver cirrhosis 3. hx of etoh abuse 4. HTN Plan - cont with free water restriction - repeat labs in am - hyponatremia can be from liver disease - will give a dose of spironolactone and repeat labs in am - GI follow up - follow up tumor markers Dr Ramsey
[2016-10-18] MEDS: LACTULOSE 20 GM/30 ML UDC (FOR ORAL USE ONLY) PO SCH (21:08)
[2016-10-18] MEDS: RIFAXIMIN 550 MG TABLET (UD) PO SCH (21:08)
[2016-10-19 07:32] LABS: BASOPHIL 0.8 % (0-2.0); EOSINOPHIL 1.3 % (0-4.5); MCH 31.6 pg (25.7-33.7); MCHC 32.8 g/dl (32.0-35.9); MEAN CELL VOLUME 96.4 fl (80-96); MEAN PLT VOLUME 9.8 fl (7.5-11.1); NEUTROPHILS 77.8 % (42.8-82.8); PLATELET COUNT 421 K/MM3 (134-434); RDW 16.7 % (11.9-15.9); WHITE BLOOD COUNT 8.7 K/mm3 (4.0-10.0)
[2016-10-19 07:46] LABS: ANION GAP 9 (8-16); BILIRUBIN,TOTAL 7.6 mg/dL (0.2-1.0); CALCIUM 8.5 mg/dL (8.5-10.1); CO2 28 mmol/L (21-32); CREATININE 0.9 mg/dL (0.7-1.3); GLUCOSE,RANDOM 92 mg/dL (74-106)
[2016-10-19 07:58] LABS: ALK PHOS 979 U/L (45-117); TOT PROT 6.1 g/dl (6.4-8.2)
[2016-10-19 08:09] LABS: SGOT/AST 946 U/L (15-37); SGPT/ALT 418 U/L (12-78)
[2016-10-19] MEDS: LACTULOSE 20 GM/30 ML UDC (FOR ORAL USE ONLY) PO SCH ×2 (09:02→21:58)
[2016-10-19] MEDS: FOLIC ACID 1 MG TABLET (FP) PO SCH (09:02)
[2016-10-19] MEDS: METOPROLOL TARTRATE 50 MG TABLET (FP) PO SCH ×2 (09:02→21:58)
[2016-10-19] MEDS: PANTOPRAZOLE 40 MG TABLET (FP) PO SCH (09:02)
[2016-10-19] MEDS: amLODIPine BESYLATE 5 MG TABLET (FP) PO SCH (09:02)
[2016-10-19] MEDS: MULTIVITAMINS (DAILY MVI) TABLET (FP) PO SCH (09:02)
[2016-10-19] MEDS: TAMSULOSIN HCL 0.4 MG CAP.ER.24H (FP) PO SCH (09:02)
[2016-10-19] MEDS: RIFAXIMIN 550 MG TABLET (UD) PO SCH ×2 (09:05→23:00)
--- NOTE | 2016-10-19 09:15 | PN ---
Progress Note, Physician History of Present Illness: 71-year-old man, accompanied by his nephew, with a significant past medical history of hypertension and liver cirrhosis who was sent to the emergency department via EMS, by his primary care physician, Dr. Neil Esqueda to rule out hepatic encephalopathy. As per patient's nephew, the patient has not been sober for the past 40 years. He recently stopped drinking approximately 3 weeks ago, secondary to constant diffuse abdominal pain with ascites and jaundice. His nephew also states that the patient has been more confused than usual and his gait is wider. Patient also complains of mild-moderate suprapubic pain, described as a burning sensation, for which he states that he has a ventral hernia. No other complaints. - Current Medication List Current Medications: Active Medications Amlodipine Besylate (Norvasc -) 5 mg PO DAILY [facility] Last Admin: 10/19/16 09:02 Dose: 5 mg Folic Acid (Folic Acid -) 1 mg PO DAILY [facility] Last Admin: 10/19/16 09:02 Dose: 1 mg Lactulose (Cephulac (Oral Use)) 20 gm PO BID [facility] Last Admin: 10/19/16 09:02 Dose: 20 gm Lorazepam (Ativan Injection -) 1 mg IM Q6H PRN PRN Reason: ANXIETY Metoprolol Tartrate (Lopressor -) 50 mg PO BID [facility] Last Admin: 10/19/16 09:02 Dose: 50 mg Multivitamins/Minerals/Vitamin C (Tab-A-Vit -) 1 tab PO DAILY [facility] Last Admin: 10/19/16 09:02 Dose: 1 tab Pantoprazole Sodium (Protonix -) 40 mg PO DAILY [facility] Last Admin: 10/19/16 09:02 Dose: 40 mg Rifaximin (Xifaxan -) 550 mg PO BID [facility] Last Admin: 10/19/16 09:05 Dose: 550 mg Tamsulosin HCl (Flomax -) 0.4 mg PO DAILY@0830 [facility] Last Admin: 10/19/16 09:02 Dose: 0.4 mg - Objective Vital Signs: Vital Signs Temperature 97.9 F 10/19/16 09:01 Pulse Rate 92 H 10/19/16 09:01 Respiratory Rate 18 10/19/16 09:01 Blood Pressure 109/57 10/19/16 09:01 O2 Sat by Pulse Oximetry (%) 95 10/18/16 21:00 Cardiovascular: Yes: Regular Rate and Rhythm Respiratory: Yes: Regular, CTA Bilaterally Gastrointestinal: Yes: Normal Bowel Sounds, Soft, Abdomen, Obese, Ascites, Distention Labs: CBC, BMP 10/19/16 06:00 10/19/16 06:00 INR, PTT INR 1.24 (0.82-1.09) H 10/15/16 14:07 Problem List - Problems (1) Alcoholism Assessment/Plan: MONITOR NO S/S OF WITHDRAWALS Code(s): F10.20 - ALCOHOL DEPENDENCE, UNCOMPLICATED (2) Cirrhosis Assessment/Plan: W/U PER GI MONITOR Code(s): K74.60 - UNSPECIFIED CIRRHOSIS OF LIVER Qualifiers: Hepatic cirrhosis type: alcoholic cirrhosis Ascites presence: with ascites Qualified Code(s): K70.31 - Alcoholic cirrhosis of liver with ascites (3) Neoplasm of liver Assessment/Plan: WILL NEED BIOPSY (4) Afib Assessment/Plan: OF UNKNOWN DURATION EKG CARDIO NOTED HIGH RISK OF BLEEDING--DEFER AC Code(s): I48.91 - UNSPECIFIED ATRIAL FIBRILLATION (5) Inguinal hernia Assessment/Plan: SURGICAL CONSULT Code(s): K40.90 - UNIL INGUINAL HERNIA, W/O OBST OR GANGR, NOT SPCF RECUR
[2016-10-19] MEDS ORDERED: SPIRONOLACTONE 25 MG TABLET (FP) PO ONE (15:33)
--- NOTE | 2016-10-19 15:33 | PN ---
Progress Note, Physician History of Present Illness: Pt seen and examined at bedside. He is awake and appears comfortable. - Current Medication List Current Medications: Active Medications Amlodipine Besylate (Norvasc -) 5 mg PO DAILY [facility] Last Admin: 10/19/16 09:02 Dose: 5 mg Folic Acid (Folic Acid -) 1 mg PO DAILY [facility] Last Admin: 10/19/16 09:02 Dose: 1 mg Lactulose (Cephulac (Oral Use)) 20 gm PO BID [facility] Last Admin: 10/19/16 09:02 Dose: 20 gm Lorazepam (Ativan Injection -) 1 mg IM Q6H PRN PRN Reason: ANXIETY Metoprolol Tartrate (Lopressor -) 50 mg PO BID [facility] Last Admin: 10/19/16 09:02 Dose: 50 mg Multivitamins/Minerals/Vitamin C (Tab-A-Vit -) 1 tab PO DAILY [facility] Last Admin: 10/19/16 09:02 Dose: 1 tab Pantoprazole Sodium (Protonix -) 40 mg PO DAILY [facility] Last Admin: 10/19/16 09:02 Dose: 40 mg Rifaximin (Xifaxan -) 550 mg PO BID [facility] Last Admin: 10/19/16 09:05 Dose: 550 mg Tamsulosin HCl (Flomax -) 0.4 mg PO DAILY@0830 [facility] Last Admin: 10/19/16 09:02 Dose: 0.4 mg - Objective Vital Signs: Vital Signs Temperature 98.3 F 10/19/16 14:26 Pulse Rate 87 10/19/16 14:26 Respiratory Rate 18 10/19/16 14:26 Blood Pressure 114/61 10/19/16 14:26 O2 Sat by Pulse Oximetry (%) 95 10/19/16 09:10 Constitutional: Yes: Calm Eyes: Yes: Conjunctiva Clear HENT: Yes: Atraumatic Cardiovascular: Yes: S1, S2 Respiratory: Yes: CTA Bilaterally Gastrointestinal: Yes: Soft, Ascites Musculoskeletal: Yes: WNL Edema: No Neurological: Yes: Oriented Psychiatric: Yes: Oriented Labs: CBC, BMP 10/19/16 06:00 10/19/16 06:00 INR, PTT INR 1.24 (0.82-1.09) H 10/15/16 14:07 Problem List - Problems (1) Alcoholism Code(s): F10.20 - ALCOHOL DEPENDENCE, UNCOMPLICATED (2) Cirrhosis Code(s): K74.60 - UNSPECIFIED CIRRHOSIS OF LIVER Qualifiers: Hepatic cirrhosis type: alcoholic cirrhosis Ascites presence: with ascites Qualified Code(s): K70.31 - Alcoholic cirrhosis of liver with ascites (3) Hepatocellular carcinoma Code(s): C22.0 - LIVER CELL CARCINOMA (4) Liver failure Code(s): K72.90 - HEPATIC FAILURE, UNSPECIFIED WITHOUT COMA Qualifiers: Liver failure chronicity: subacute Hepatic coma status: without hepatic coma Qualified Code(s): K72.00 - Acute and subacute hepatic failure without coma (6) Hyponatremia Code(s): E87.1 - HYPO-OSMOLALITY AND HYPONATREMIA Assessment/Plan Current Medications Generic Name Dose Route Start Last Admin Trade Name Freq PRN Reason Stop Dose Admin Amlodipine Besylate 5 mg 10/15/16 15:45 10/19/16 09:02 Norvasc - PO 5 mg DAILY THIEN Administration Folic Acid 1 mg 10/17/16 10:00 10/19/16 09:02 Folic Acid - PO 1 mg DAILY THIEN Administration Lactulose 20 gm 10/18/16 22:00 10/19/16 09:02 Cephulac (Oral Use) PO 20 gm BID THIEN Administration Lorazepam 1 mg 10/15/16 15:43 Ativan Injection - IM Q6H PRN ANXIETY Metoprolol Tartrate 50 mg 10/15/16 22:00 10/19/16 09:02 Lopressor - PO 50 mg BID THIEN Administration Multivitamins/Minerals/Vitamin C 1 tab 10/17/16 10:00 10/19/16 09:02 Tab-A-Vit - PO 1 tab DAILY [facility]IEN Administration Pantoprazole Sodium 40 mg 10/15/16 15:45 10/19/16 09:02 Protonix - PO 40 mg DAILY THIEN Administration Rifaximin 550 mg 10/18/16 22:00 10/19/16 09:05 Xifaxan - PO 550 mg BID THIEN Administration Tamsulosin HCl 0.4 mg 10/16/16 08:30 10/19/16 09:02 Flomax - PO 0.4 mg DAILY@0830 THIEN Administration Impression 1. hyponatremia mild 2. liver cirrhosis 3. hx of etoh abuse 4. HTN Plan - sodium is improved - will give another dose of spironolactone - cont with free water restriction - hyponatremia can be from liver disease - follow up tumor markers Dr Ramsey
--- NOTE | 2016-10-19 16:42 | PN ---
GI Progress Note Subjective: Appears comfortable No pain - Objective Vital Signs: Vital Signs Temperature 98.3 F 10/19/16 14:26 Pulse Rate 87 10/19/16 14:26 Respiratory Rate 18 10/19/16 14:26 Blood Pressure 114/61 10/19/16 14:26 O2 Sat by Pulse Oximetry (%) 95 10/19/16 09:10 Constitutional: Thin Cardiovascular: Yes: Regular Rate and Rhythm Respiratory: Yes: CTA Bilaterally Gastrointestinal Inspection: Yes: Ascites ...Auscultate: Yes: Normoactive Bowel Sounds ...Palpate: Yes: Hepatomegaly Labs: CBC, BMP 10/19/16 06:00 10/19/16 06:00 INR, PTT INR 1.24 (0.82-1.09) H 10/15/16 14:07 Hepatic Panel Total Bilirubin 7.6 mg/dL (0.2-1.0) H 10/19/16 06:00 Direct Bilirubin 5.4 mg/dL (0.0-0.2) H 10/15/16 14:07 AST 946 U/L (15-37) H 10/19/16 06:00 ALT 418 U/L (12-78) H 10/19/16 06:00 Alkaline Phosphatase 979 U/L (45-117) H 10/19/16 06:00 Albumin 2.0 g/dl (3.4-5.0) L 10/19/16 06:00 INR, PTT INR 1.24 (0.82-1.09) H 10/15/16 14:07 - ....Imaging MRI: Report Reviewed (Numerous hepatic lesions) Assessment/Plan Patient with h/o cirrhosis now with HCC Will send for biopsy tomorrow with interventional radiology
[2016-10-20] MEDS: LACTULOSE 20 GM/30 ML UDC (FOR ORAL USE ONLY) PO SCH ×3 (06:51→21:41)
[2016-10-20 08:09] LABS: ANION GAP 10 (8-16); CALCIUM 8.7 mg/dL (8.5-10.1); CO2 27 mmol/L (21-32); CREATININE 1.1 mg/dL (0.7-1.3); GLUCOSE,RANDOM 93 mg/dL (74-106)
[2016-10-20] MEDS ORDERED: PT OWN MED DRAWER 7, Y5N ONE ×2 (12:18→21:31)
[2016-10-20] MEDS: MULTIVITAMINS (DAILY MVI) TABLET (FP) PO SCH (12:19)
[2016-10-20] MEDS: amLODIPine BESYLATE 5 MG TABLET (FP) PO SCH (12:20)
[2016-10-20] MEDS: TAMSULOSIN HCL 0.4 MG CAP.ER.24H (FP) PO SCH (12:20)
[2016-10-20] MEDS: PANTOPRAZOLE 40 MG TABLET (FP) PO SCH (12:20)
[2016-10-20] MEDS: RIFAXIMIN 550 MG TABLET (UD) PO SCH ×2 (12:20→21:41)
[2016-10-20] MEDS: FOLIC ACID 1 MG TABLET (FP) PO SCH (12:20)
[2016-10-20] MEDS: METOPROLOL TARTRATE 50 MG TABLET (FP) PO SCH ×2 (14:18→21:41)
--- NOTE | 2016-10-20 15:09 | PN ---
Progress Note, Physician History of Present Illness: Pt seen and examined at bedside. He is awake and alert. He denies shortness of breath. - Current Medication List Current Medications: Active Medications Amlodipine Besylate (Norvasc -) 5 mg PO DAILY [facility] Last Admin: 10/20/16 12:20 Dose: 5 mg Folic Acid (Folic Acid -) 1 mg PO DAILY [facility] Last Admin: 10/20/16 12:20 Dose: 1 mg Lactulose (Cephulac (Oral Use)) 20 gm PO BID [facility] Last Admin: 10/20/16 12:20 Dose: Not Given Lorazepam (Ativan Injection -) 1 mg IM Q6H PRN PRN Reason: ANXIETY Metoprolol Tartrate (Lopressor -) 50 mg PO BID [facility] Last Admin: 10/20/16 14:18 Dose: 50 mg Multivitamins/Minerals/Vitamin C (Tab-A-Vit -) 1 tab PO DAILY [facility] Last Admin: 10/20/16 12:19 Dose: 1 tab Pantoprazole Sodium (Protonix -) 40 mg PO DAILY [facility] Last Admin: 10/20/16 12:20 Dose: 40 mg Rifaximin (Xifaxan -) 550 mg PO BID [facility] Last Admin: 10/20/16 12:20 Dose: 550 mg Tamsulosin HCl (Flomax -) 0.4 mg PO DAILY@0830 [facility] Last Admin: 10/20/16 12:20 Dose: 0.4 mg - Objective Vital Signs: Vital Signs Temperature 98.1 F 10/20/16 09:30 Pulse Rate 110 H 10/20/16 11:06 Respiratory Rate 16 10/20/16 11:06 Blood Pressure 117/66 10/20/16 11:06 O2 Sat by Pulse Oximetry (%) 100 10/20/16 11:06 Constitutional: Yes: Calm Eyes: Yes: Conjunctiva Clear HENT: Yes: Atraumatic Neck: Yes: Supple Cardiovascular: Yes: S1, S2 Respiratory: Yes: CTA Bilaterally Gastrointestinal: Yes: Normal Bowel Sounds, Ascites Genitourinary: Yes: WNL Musculoskeletal: Yes: WNL Extremities: Yes: WNL Edema: No Neurological: Yes: Oriented Psychiatric: Yes: Oriented Labs: CBC, BMP 10/19/16 06:00 10/20/16 06:30 INR, PTT INR 1.24 (0.82-1.09) H 10/15/16 14:07 Problem List - Problems (1) Alcoholism Code(s): F10.20 - ALCOHOL DEPENDENCE, UNCOMPLICATED (2) Cirrhosis Code(s): K74.60 - UNSPECIFIED CIRRHOSIS OF LIVER Qualifiers: Hepatic cirrhosis type: alcoholic cirrhosis Ascites presence: with ascites Qualified Code(s): K70.31 - Alcoholic cirrhosis of liver with ascites (3) Hepatocellular carcinoma Code(s): C22.0 - LIVER CELL CARCINOMA (4) Liver failure Code(s): K72.90 - HEPATIC FAILURE, UNSPECIFIED WITHOUT COMA Qualifiers: Liver failure chronicity: subacute Hepatic coma status: without hepatic coma Qualified Code(s): K72.00 - Acute and subacute hepatic failure without coma (6) Hyponatremia Code(s): E87.1 - HYPO-OSMOLALITY AND HYPONATREMIA Assessment/Plan Current Medications Generic Name Dose Route Start Last Admin Trade Name Freq PRN Reason Stop Dose Admin Amlodipine Besylate 5 mg 10/15/16 15:45 10/20/16 12:20 Norvasc - PO 5 mg DAILY THIEN Administration Folic Acid 1 mg 10/17/16 10:00 10/20/16 12:20 Folic Acid - PO 1 mg DAILY THIEN Administration Lactulose 20 gm 10/18/16 22:00 10/20/16 12:20 Cephulac (Oral Use) PO Not Given BID THIEN Lorazepam 1 mg 10/15/16 15:43 Ativan Injection - IM Q6H PRN ANXIETY Metoprolol Tartrate 50 mg 10/15/16 22:00 10/20/16 14:18 Lopressor - PO 50 mg BID THIEN Administration Multivitamins/Minerals/Vitamin C 1 tab 10/17/16 10:00 10/20/16 12:19 Tab-A-Vit - PO 1 tab DAILY THIEN Administration Pantoprazole Sodium 40 mg 10/15/16 15:45 10/20/16 12:20 Protonix - PO 40 mg DAILY THIEN Administration Rifaximin 550 mg 10/18/16 22:00 10/20/16 12:20 Xifaxan - PO 550 mg BID THIEN Administration Tamsulosin HCl 0.4 mg 10/16/16 08:30 10/20/16 12:20 Flomax - PO 0.4 mg DAILY@0830 THIEN Administration Impression 1. hyponatremia mild 2. liver cirrhosis 3. hx of etoh abuse 4. HTN Plan - sodium stable - cont spironolactone - monitory lytes - workup per GI - will follow PRN - hyponatremia can be from liver disease Dr Ramsey
--- NOTE | 2016-10-20 17:41 | PN ---
Progress Note, Physician Chief Complaint: STATUS POST LIVER BIOPSY ON BED REST - Current Medication List Current Medications: Active Medications Amlodipine Besylate (Norvasc -) 5 mg PO DAILY [facility] Last Admin: 10/20/16 12:20 Dose: 5 mg Folic Acid (Folic Acid -) 1 mg PO DAILY [facility] Last Admin: 10/20/16 12:20 Dose: 1 mg Lactulose (Cephulac (Oral Use)) 20 gm PO BID [facility] Last Admin: 10/20/16 12:20 Dose: Not Given Lorazepam (Ativan Injection -) 1 mg IM Q6H PRN PRN Reason: ANXIETY Metoprolol Tartrate (Lopressor -) 50 mg PO BID [facility] Last Admin: 10/20/16 14:18 Dose: 50 mg Multivitamins/Minerals/Vitamin C (Tab-A-Vit -) 1 tab PO DAILY [facility] Last Admin: 10/20/16 12:19 Dose: 1 tab Pantoprazole Sodium (Protonix -) 40 mg PO DAILY [facility] Last Admin: 10/20/16 12:20 Dose: 40 mg Rifaximin (Xifaxan -) 550 mg PO BID [facility] Last Admin: 10/20/16 12:20 Dose: 550 mg Tamsulosin HCl (Flomax -) 0.4 mg PO DAILY@0830 [facility] Last Admin: 10/20/16 12:20 Dose: 0.4 mg - Objective Vital Signs: Vital Signs Temperature 98.4 F 10/20/16 14:23 Pulse Rate 101 H 10/20/16 14:23 Respiratory Rate 18 10/20/16 14:23 Blood Pressure 101/62 10/20/16 14:23 O2 Sat by Pulse Oximetry (%) 100 10/20/16 11:06 Constitutional: Yes: No Distress Eyes: Yes: WNL HENT: Yes: WNL Neck: Yes: WNL Cardiovascular: Yes: WNL Respiratory: Yes: Collins-Cesar Gastrointestinal: Yes: Tenderness Musculoskeletal: Yes: WNL Extremities: Yes: WNL Edema: No Peripheral Pulses WNL: Yes Integumentary: Yes: WNL Wound/Incision: Yes: Clean/Dry Neurological: Yes: WNL ...Motor Strength: WNL Psychiatric: Yes: WNL Labs: CBC, BMP 10/19/16 06:00 10/20/16 06:30 INR, PTT INR 1.24 (0.82-1.09) H 10/15/16 14:07 Problem List - Problems (1) Alcoholism Code(s): F10.20 - ALCOHOL DEPENDENCE, UNCOMPLICATED (2) Cirrhosis Code(s): K74.60 - UNSPECIFIED CIRRHOSIS OF LIVER Qualifiers: Hepatic cirrhosis type: alcoholic cirrhosis Ascites presence: with ascites Qualified Code(s): K70.31 - Alcoholic cirrhosis of liver with ascites (3) Hepatocellular carcinoma Code(s): C22.0 - LIVER CELL CARCINOMA (4) Liver failure Code(s): K72.90 - HEPATIC FAILURE, UNSPECIFIED WITHOUT COMA Qualifiers: Liver failure chronicity: subacute Hepatic coma status: without hepatic coma Qualified Code(s): K72.00 - Acute and subacute hepatic failure without coma Assessment/Plan LIVER BIOPSY COMPLETE CHECK LABS IN AM PATHOLOGY REPORT PENDING OOB TO CHAIR ONCOLOGY/GI FOLLOW UP
--- NOTE | 2016-10-20 17:58 | PN ---
Progress Note (short form) - Note Progress Note: PAtient seen and examined Last Vital Signs Temp Pulse Resp BP Pulse Ox 98.4 F 101 H 18 101/62 100 10/20/16 14:23 10/20/16 14:23 10/20/16 14:23 10/20/16 14:23 10/20/16 11:06 Cor: RSR, No murmurs, No gallops Lungs: Clear to P&A Abd: Soft, Normal bowel sounds, No organomegaly Ext:No significant edema Labs/meds reviewed a/p 71 y/o patient with presumed multifocal hepatoms, elevated AFP. Biopsy is pending ? sorafenib /sutent as outpatient
[2016-10-21 07:06] LABS: MCH 32.3 pg (25.7-33.7); MCHC 33.2 g/dl (32.0-35.9); MEAN CELL VOLUME 97.4 fl (80-96); MEAN PLT VOLUME 9.8 fl (7.5-11.1); PLATELET COUNT 356 K/MM3 (134-434); RDW 16.7 % (11.9-15.9); WHITE BLOOD COUNT 8.5 K/mm3 (4.0-10.0)
[2016-10-21 07:42] LABS: ALBUMIN 1.9 g/dl (3.4-5.0); ANION GAP 8 (8-16); BILIRUBIN,TOTAL 6.3 mg/dL (0.2-1.0); CALCIUM 8.6 mg/dL (8.5-10.1); CO2 27 mmol/L (21-32); CREATININE 0.9 mg/dL (0.7-1.3); GLUCOSE,RANDOM 75 mg/dL (74-106); TOT PROT 6.1 g/dl (6.4-8.2)
[2016-10-21 07:43] LABS: ALK PHOS 884 U/L (45-117)
[2016-10-21 08:01] LABS: SGOT/AST 992 U/L (15-37); SGPT/ALT 449 U/L (12-78)
--- NOTE | 2016-10-21 10:58 | PN ---
Progress Note, Physician History of Present Illness: 71-year-old man, accompanied by his nephew, with a significant past medical history of hypertension and liver cirrhosis who was sent to the emergency department via EMS, by his primary care physician, Dr. Neil Esqueda to rule out hepatic encephalopathy. As per patient's nephew, the patient has not been sober for the past 40 years. He recently stopped drinking approximately 3 weeks ago, secondary to constant diffuse abdominal pain with ascites and jaundice. His nephew also states that the patient has been more confused than usual and his gait is wider. Patient also complains of mild-moderate suprapubic pain, described as a burning sensation, for which he states that he has a ventral hernia. No other complaints. - Current Medication List Current Medications: Active Medications Amlodipine Besylate (Norvasc -) 5 mg PO DAILY [facility] Last Admin: 10/20/16 12:20 Dose: 5 mg Folic Acid (Folic Acid -) 1 mg PO DAILY [facility] Last Admin: 10/20/16 12:20 Dose: 1 mg Lactulose (Cephulac (Oral Use)) 20 gm PO BID [facility] Last Admin: 10/20/16 21:41 Dose: Not Given Lorazepam (Ativan Injection -) 1 mg IM Q6H PRN PRN Reason: ANXIETY Metoprolol Tartrate (Lopressor -) 50 mg PO BID [facility] Last Admin: 10/20/16 21:41 Dose: 50 mg Multivitamins/Minerals/Vitamin C (Tab-A-Vit -) 1 tab PO DAILY [facility] Last Admin: 10/20/16 12:19 Dose: 1 tab Pantoprazole Sodium (Protonix -) 40 mg PO DAILY [facility] Last Admin: 10/20/16 12:20 Dose: 40 mg Rifaximin (Xifaxan -) 550 mg PO BID [facility] Last Admin: 10/20/16 21:41 Dose: 550 mg Tamsulosin HCl (Flomax -) 0.4 mg PO DAILY@0830 [facility] Last Admin: 10/20/16 12:20 Dose: 0.4 mg - Objective Vital Signs: Vital Signs Temperature 98.8 F 10/21/16 06:00 Pulse Rate 79 10/21/16 06:00 Respiratory Rate 18 10/21/16 06:00 Blood Pressure 100/60 10/21/16 06:00 O2 Sat by Pulse Oximetry (%) 100 10/20/16 22:00 Cardiovascular: Yes: Regular Rate and Rhythm Respiratory: Yes: Regular, CTA Bilaterally Gastrointestinal: Yes: Normal Bowel Sounds, Soft, Ascites, Distention Labs: CBC, BMP 10/21/16 06:25 10/21/16 06:25 INR, PTT INR 1.24 (0.82-1.09) H 10/15/16 14:07 Problem List - Problems (1) Alcoholism Assessment/Plan: MONITOR NO S/S OF WITHDRAWALS Code(s): F10.20 - ALCOHOL DEPENDENCE, UNCOMPLICATED (2) Cirrhosis Assessment/Plan: W/U PER GI MONITOR Code(s): K74.60 - UNSPECIFIED CIRRHOSIS OF LIVER Qualifiers: Hepatic cirrhosis type: alcoholic cirrhosis Ascites presence: with ascites Qualified Code(s): K70.31 - Alcoholic cirrhosis of liver with ascites (3) Neoplasm of liver Assessment/Plan: S/P BIOPSY (4) Afib Assessment/Plan: OF UNKNOWN DURATION EKG CARDIO NOTED HIGH RISK OF BLEEDING--DEFER AC Code(s): I48.91 - UNSPECIFIED ATRIAL FIBRILLATION (5) Inguinal hernia Assessment/Plan: SURGICAL CONSULT Code(s): K40.90 - UNIL INGUINAL HERNIA, W/O OBST OR GANGR, NOT SPCF RECUR
[2016-10-21] MEDS: RIFAXIMIN 550 MG TABLET (UD) PO SCH ×2 (11:26→21:58)
[2016-10-21] MEDS: FOLIC ACID 1 MG TABLET (FP) PO SCH (11:26)
[2016-10-21] MEDS: PANTOPRAZOLE 40 MG TABLET (FP) PO SCH (11:26)
[2016-10-21] MEDS: TAMSULOSIN HCL 0.4 MG CAP.ER.24H (FP) PO SCH (11:26)
[2016-10-21] MEDS: MULTIVITAMINS (DAILY MVI) TABLET (FP) PO SCH (11:26)
[2016-10-21] MEDS: METOPROLOL TARTRATE 50 MG TABLET (FP) PO SCH ×2 (11:26→21:58)
[2016-10-21] MEDS: amLODIPine BESYLATE 5 MG TABLET (FP) PO SCH (11:26)
[2016-10-21] MEDS: LACTULOSE 20 GM/30 ML UDC (FOR ORAL USE ONLY) PO SCH ×2 (11:27→21:59)
--- NOTE | 2016-10-21 15:00 | PN ---
Progress Note, Physician History of Present Illness: Pt seen and examined at bedside. He has no complaints. - Current Medication List Current Medications: Active Medications Amlodipine Besylate (Norvasc -) 5 mg PO DAILY [facility] Last Admin: 10/21/16 11:26 Dose: 5 mg Folic Acid (Folic Acid -) 1 mg PO DAILY [facility] Last Admin: 10/21/16 11:26 Dose: 1 mg Lactulose (Cephulac (Oral Use)) 20 gm PO BID [facility] Last Admin: 10/21/16 11:27 Dose: 20 gm Lorazepam (Ativan Injection -) 1 mg IM Q6H PRN PRN Reason: ANXIETY Metoprolol Tartrate (Lopressor -) 50 mg PO BID [facility] Last Admin: 10/21/16 11:26 Dose: 50 mg Multivitamins/Minerals/Vitamin C (Tab-A-Vit -) 1 tab PO DAILY [facility] Last Admin: 10/21/16 11:26 Dose: 1 tab Pantoprazole Sodium (Protonix -) 40 mg PO DAILY [facility] Last Admin: 10/21/16 11:26 Dose: 40 mg Rifaximin (Xifaxan -) 550 mg PO BID [facility] Last Admin: 10/21/16 11:26 Dose: 550 mg Tamsulosin HCl (Flomax -) 0.4 mg PO DAILY@0830 [facility] Last Admin: 10/21/16 11:26 Dose: 0.4 mg - Objective Vital Signs: Vital Signs Temperature 97.4 F L 10/21/16 13:28 Pulse Rate 97 H 10/21/16 13:28 Respiratory Rate 18 10/21/16 13:28 Blood Pressure 108/64 10/21/16 13:28 O2 Sat by Pulse Oximetry (%) 99 10/21/16 09:00 Constitutional: Yes: Calm Eyes: Yes: Conjunctiva Clear HENT: Yes: Atraumatic Neck: Yes: Supple Cardiovascular: Yes: S1, S2 Respiratory: Yes: CTA Bilaterally Gastrointestinal: Yes: Soft, Ascites Genitourinary: Yes: WNL Musculoskeletal: Yes: WNL Edema: No Neurological: Yes: Oriented Psychiatric: Yes: Oriented Labs: CBC, BMP 10/21/16 06:25 10/21/16 06:25 INR, PTT INR 1.24 (0.82-1.09) H 10/15/16 14:07 Problem List - Problems (1) Alcoholism Code(s): F10.20 - ALCOHOL DEPENDENCE, UNCOMPLICATED (2) Cirrhosis Code(s): K74.60 - UNSPECIFIED CIRRHOSIS OF LIVER Qualifiers: Hepatic cirrhosis type: alcoholic cirrhosis Ascites presence: with ascites Qualified Code(s): K70.31 - Alcoholic cirrhosis of liver with ascites (3) Hepatocellular carcinoma Code(s): C22.0 - LIVER CELL CARCINOMA (4) Liver failure Code(s): K72.90 - HEPATIC FAILURE, UNSPECIFIED WITHOUT COMA Qualifiers: Liver failure chronicity: subacute Hepatic coma status: without hepatic coma Qualified Code(s): K72.00 - Acute and subacute hepatic failure without coma (6) Hyponatremia Code(s): E87.1 - HYPO-OSMOLALITY AND HYPONATREMIA Assessment/Plan Current Medications Generic Name Dose Route Start Last Admin Trade Name Freq PRN Reason Stop Dose Admin Amlodipine Besylate 5 mg 10/15/16 15:45 10/21/16 11:26 Norvasc - PO 5 mg DAILY THIEN Administration Folic Acid 1 mg 10/17/16 10:00 10/21/16 11:26 Folic Acid - PO 1 mg DAILY THIEN Administration Lactulose 20 gm 10/18/16 22:00 10/21/16 11:27 Cephulac (Oral Use) PO 20 gm BID THIEN Administration Lorazepam 1 mg 10/15/16 15:43 Ativan Injection - IM Q6H PRN ANXIETY Metoprolol Tartrate 50 mg 10/15/16 22:00 10/21/16 11:26 Lopressor - PO 50 mg BID THIEN Administration Multivitamins/Minerals/Vitamin C 1 tab 10/17/16 10:00 10/21/16 11:26 Tab-A-Vit - PO 1 tab DAILY THIEN Administration Pantoprazole Sodium 40 mg 10/15/16 15:45 10/21/16 11:26 Protonix - PO 40 mg DAILY THIEN Administration Rifaximin 550 mg 10/18/16 22:00 10/21/16 11:26 Xifaxan - PO 550 mg BID THIEN Administration Tamsulosin HCl 0.4 mg 10/16/16 08:30 10/21/16 11:26 Flomax - PO 0.4 mg DAILY@0830 THIEN Administration Impression 1. hyponatremia mild 2. liver cirrhosis 3. hx of etoh abuse 4. HTN Plan - cont current meds - monitor bmp - restrict free water to 1 liter - cont spironolactone - workup per GI - will follow PRN - hyponatremia can be from liver disease Dr Ramsey
--- NOTE | 2016-10-21 17:28 | PN ---
Progress Note (short form) - Note Progress Note: Patient seen and examined Offers no complaints No untoward effects from Liver biopsy Last Vital Signs Temp Pulse Resp BP Pulse Ox 97.4 F L 97 H 18 108/64 99 10/21/16 13:28 10/21/16 13:28 10/21/16 13:28 10/21/16 13:28 10/21/16 09:00 HEENT: OBIE, EOM Intact Oropharynx: No thrush, No mucositis Cor: RSR, No murmurs, No gallops Lungs: diminished breath sounds bilaterally Abd: distended RUQ fullness Ext:No significant edema Skin: No rashes, Integument intact CBC, BMP 10/21/16 06:25 10/21/16 06:25 Current Medications Generic Name Dose Route Start Last Admin Trade Name Freq PRN Reason Stop Dose Admin Amlodipine Besylate 5 mg 10/15/16 15:45 10/21/16 11:26 Norvasc - PO 5 mg DAILY [facility]IEN Administration Folic Acid 1 mg 10/17/16 10:00 10/21/16 11:26 Folic Acid - PO 1 mg DAILY [facility] Administration Lactulose 20 gm 10/18/16 22:00 10/21/16 11:27 Cephulac (Oral Use) PO 20 gm BID THIEN Administration Lorazepam 1 mg 10/15/16 15:43 Ativan Injection - IM Q6H PRN ANXIETY Metoprolol Tartrate 50 mg 10/15/16 22:00 10/21/16 11:26 Lopressor - PO 50 mg BID THIEN Administration Multivitamins/Minerals/Vitamin C 1 tab 10/17/16 10:00 10/21/16 11:26 Tab-A-Vit - PO 1 tab DAILY [facility] Administration Pantoprazole Sodium 40 mg 10/15/16 15:45 10/21/16 11:26 Protonix - PO 40 mg DAILY [facility] Administration Rifaximin 550 mg 10/18/16 22:00 10/21/16 11:26 Xifaxan - PO 550 mg BID THIEN Administration Tamsulosin HCl 0.4 mg 10/16/16 08:30 10/21/16 11:26 Flomax - PO 0.4 mg DAILY@0830 THIEN Administration Impression: \ Multi-centric hepatoma Awaiting biopsy results
[2016-10-22] MEDS: TAMSULOSIN HCL 0.4 MG CAP.ER.24H (FP) PO SCH (08:40)
[2016-10-22] MEDS ORDERED: PT OWN MED DRAWER 7, Y5N ONE (10:40)
[2016-10-22] MEDS: FOLIC ACID 1 MG TABLET (FP) PO SCH (10:46)
[2016-10-22] MEDS: amLODIPine BESYLATE 5 MG TABLET (FP) PO SCH (10:46)
[2016-10-22] MEDS: MULTIVITAMINS (DAILY MVI) TABLET (FP) PO SCH (10:46)
[2016-10-22] MEDS: METOPROLOL TARTRATE 50 MG TABLET (FP) PO SCH ×2 (10:46→21:21)
[2016-10-22] MEDS: PANTOPRAZOLE 40 MG TABLET (FP) PO SCH (10:46)
[2016-10-22] MEDS: LACTULOSE 20 GM/30 ML UDC (FOR ORAL USE ONLY) PO SCH ×2 (10:46→21:21)
[2016-10-22] MEDS: RIFAXIMIN 550 MG TABLET (UD) PO SCH ×2 (10:47→21:21)
--- NOTE | 2016-10-22 13:04 | PN ---
Progress Note, Physician History of Present Illness: Pt seen and examined at bedside. He is awake and alert. He says he wants to go back to [place]. - Current Medication List Current Medications: Active Medications Amlodipine Besylate (Norvasc -) 5 mg PO DAILY [facility] Last Admin: 10/22/16 10:46 Dose: 5 mg Folic Acid (Folic Acid -) 1 mg PO DAILY [facility] Last Admin: 10/22/16 10:46 Dose: 1 mg Lactulose (Cephulac (Oral Use)) 20 gm PO BID [facility] Last Admin: 10/22/16 10:46 Dose: 20 gm Lorazepam (Ativan Injection -) 1 mg IM Q6H PRN PRN Reason: ANXIETY Metoprolol Tartrate (Lopressor -) 50 mg PO BID [facility] Last Admin: 10/22/16 10:46 Dose: 50 mg Multivitamins/Minerals/Vitamin C (Tab-A-Vit -) 1 tab PO DAILY [facility] Last Admin: 10/22/16 10:46 Dose: 1 tab Pantoprazole Sodium (Protonix -) 40 mg PO DAILY [facility] Last Admin: 10/22/16 10:46 Dose: 40 mg Rifaximin (Xifaxan -) 550 mg PO BID [facility] Last Admin: 10/22/16 10:47 Dose: 550 mg Tamsulosin HCl (Flomax -) 0.4 mg PO DAILY@0830 [facility] Last Admin: 10/22/16 08:40 Dose: 0.4 mg - Objective Vital Signs: Vital Signs Temperature 97.8 F 10/22/16 10:50 Pulse Rate 90 10/22/16 10:50 Respiratory Rate 18 10/22/16 10:50 Blood Pressure 110/61 10/22/16 10:50 O2 Sat by Pulse Oximetry (%) 99 10/21/16 09:00 Constitutional: Yes: Calm Eyes: Yes: Conjunctiva Clear HENT: Yes: Atraumatic Cardiovascular: Yes: S1, S2 Respiratory: Yes: CTA Bilaterally Gastrointestinal: Yes: Normal Bowel Sounds, Soft, Ascites Genitourinary: Yes: WNL Musculoskeletal: Yes: WNL Edema: No Neurological: Yes: Oriented Psychiatric: Yes: Oriented Labs: CBC, BMP 10/21/16 06:25 10/21/16 06:25 INR, PTT INR 1.24 (0.82-1.09) H 10/15/16 14:07 Problem List - Problems (1) Alcoholism Code(s): F10.20 - ALCOHOL DEPENDENCE, UNCOMPLICATED (2) Cirrhosis Code(s): K74.60 - UNSPECIFIED CIRRHOSIS OF LIVER Qualifiers: Hepatic cirrhosis type: alcoholic cirrhosis Ascites presence: with ascites Qualified Code(s): K70.31 - Alcoholic cirrhosis of liver with ascites (3) Hepatocellular carcinoma Code(s): C22.0 - LIVER CELL CARCINOMA (4) Liver failure Code(s): K72.90 - HEPATIC FAILURE, UNSPECIFIED WITHOUT COMA Qualifiers: Liver failure chronicity: subacute Hepatic coma status: without hepatic coma Qualified Code(s): K72.00 - Acute and subacute hepatic failure without coma (6) Hyponatremia Code(s): E87.1 - HYPO-OSMOLALITY AND HYPONATREMIA Assessment/Plan Current Medications Generic Name Dose Route Start Last Admin Trade Name Freq PRN Reason Stop Dose Admin Amlodipine Besylate 5 mg 10/15/16 15:45 10/22/16 10:46 Norvasc - PO 5 mg DAILY [facility] Administration Folic Acid 1 mg 10/17/16 10:00 10/22/16 10:46 Folic Acid - PO 1 mg DAILY [facility] Administration Lactulose 20 gm 10/18/16 22:00 10/22/16 10:46 Cephulac (Oral Use) PO 20 gm BID [facility] Administration Lorazepam 1 mg 10/15/16 15:43 Ativan Injection - IM Q6H PRN ANXIETY Metoprolol Tartrate 50 mg 10/15/16 22:00 10/22/16 10:46 Lopressor - PO 50 mg BID [facility] Administration Multivitamins/Minerals/Vitamin C 1 tab 10/17/16 10:00 10/22/16 10:46 Tab-A-Vit - PO 1 tab DAILY [facility] Administration Pantoprazole Sodium 40 mg 10/15/16 15:45 10/22/16 10:46 Protonix - PO 40 mg DAILY [facility] Administration Rifaximin 550 mg 10/18/16 22:00 10/22/16 10:47 Xifaxan - PO 550 mg BID THI[facility] Administration Tamsulosin HCl 0.4 mg 10/16/16 08:30 10/22/16 08:40 Flomax - PO 0.4 mg DAILY@0830 [facility] Administration Impression 1. hyponatremia mild 2. liver cirrhosis 3. hx of etoh abuse 4. HTN Plan - no new labs - pt appears euvolemic - he says he want to go back to [place], I explained he will need follow up if he does - oncology input appreciated - restrict free water to 1 liter - cont spironolactone - workup per GI - hyponatremia can be from liver disease Dr Ramsey
--- NOTE | 2016-10-22 15:51 | PN ---
Progress Note, Physician Chief Complaint: SITTING UP IN CHAIR NAD - Current Medication List Current Medications: Active Medications Amlodipine Besylate (Norvasc -) 5 mg PO DAILY [facility] Last Admin: 10/22/16 10:46 Dose: 5 mg Folic Acid (Folic Acid -) 1 mg PO DAILY [facility] Last Admin: 10/22/16 10:46 Dose: 1 mg Lactulose (Cephulac (Oral Use)) 20 gm PO BID [facility] Last Admin: 10/22/16 10:46 Dose: 20 gm Lorazepam (Ativan Injection -) 1 mg IM Q6H PRN PRN Reason: ANXIETY Metoprolol Tartrate (Lopressor -) 50 mg PO BID [facility] Last Admin: 10/22/16 10:46 Dose: 50 mg Multivitamins/Minerals/Vitamin C (Tab-A-Vit -) 1 tab PO DAILY [facility] Last Admin: 10/22/16 10:46 Dose: 1 tab Pantoprazole Sodium (Protonix -) 40 mg PO DAILY [facility] Last Admin: 10/22/16 10:46 Dose: 40 mg Rifaximin (Xifaxan -) 550 mg PO BID [facility] Last Admin: 10/22/16 10:47 Dose: 550 mg Spironolactone (Aldactone -) 25 mg PO DAILY [facility] Tamsulosin HCl (Flomax -) 0.4 mg PO DAILY@0830 [facility] Last Admin: 10/22/16 08:40 Dose: 0.4 mg - Objective Vital Signs: Vital Signs Temperature 98.1 F 10/22/16 14:28 Pulse Rate 84 10/22/16 14:28 Respiratory Rate 18 10/22/16 14:28 Blood Pressure 110/57 10/22/16 14:28 O2 Sat by Pulse Oximetry (%) 99 10/21/16 09:00 Constitutional: Yes: No Distress Eyes: Yes: WNL HENT: Yes: WNL Neck: Yes: WNL Cardiovascular: Yes: WNL Respiratory: Yes: WNL Gastrointestinal: Yes: WNL Genitourinary: Yes: WNL Musculoskeletal: Yes: WNL Extremities: Yes: WNL Edema: No Peripheral Pulses WNL: Yes Integumentary: Yes: WNL Wound/Incision: Yes: Clean/Dry Neurological: Yes: WNL ...Motor Strength: WNL Psychiatric: Yes: WNL Labs: CBC, BMP 10/21/16 06:25 10/21/16 06:25 INR, PTT INR 1.24 (0.82-1.09) H 10/15/16 14:07 Problem List - Problems (1) Alcoholism Code(s): F10.20 - ALCOHOL DEPENDENCE, UNCOMPLICATED (2) Cirrhosis Code(s): K74.60 - UNSPECIFIED CIRRHOSIS OF LIVER Qualifiers: Hepatic cirrhosis type: alcoholic cirrhosis Ascites presence: with ascites Qualified Code(s): K70.31 - Alcoholic cirrhosis of liver with ascites (3) Hepatocellular carcinoma Code(s): C22.0 - LIVER CELL CARCINOMA (4) Liver failure Code(s): K72.90 - HEPATIC FAILURE, UNSPECIFIED WITHOUT COMA Qualifiers: Liver failure chronicity: subacute Hepatic coma status: without hepatic coma Qualified Code(s): K72.00 - Acute and subacute hepatic failure without coma Assessment/Plan AWAITING BIOPSY RESULTS OF LIVER ONCOLOGY AND GI PLAN PENDING AWAITING FOR RESULTS
[2016-10-23 08:29] LABS: ANION GAP 12 (8-16); CALCIUM 9.3 mg/dL (8.5-10.1); CO2 25 mmol/L (21-32); CREATININE 0.7 mg/dL (0.7-1.3); GLUCOSE,RANDOM 95 mg/dL (74-106)
[2016-10-23] MEDS: TAMSULOSIN HCL 0.4 MG CAP.ER.24H (FP) PO SCH (08:48)
[2016-10-23] MEDS ORDERED: PT OWN MED DRAWER 7, Y5N ONE (09:26)
[2016-10-23] MEDS: MULTIVITAMINS (DAILY MVI) TABLET (FP) PO SCH (09:28)
[2016-10-23] MEDS: FOLIC ACID 1 MG TABLET (FP) PO SCH (09:28)
[2016-10-23] MEDS: METOPROLOL TARTRATE 50 MG TABLET (FP) PO SCH (09:28)
[2016-10-23] MEDS: RIFAXIMIN 550 MG TABLET (UD) PO SCH (09:29)
[2016-10-23] MEDS: PANTOPRAZOLE 40 MG TABLET (FP) PO SCH (09:29)
[2016-10-23] MEDS: LACTULOSE 20 GM/30 ML UDC (FOR ORAL USE ONLY) PO SCH (09:29)
[2016-10-23] MEDS: amLODIPine BESYLATE 5 MG TABLET (FP) PO SCH (09:29)
[2016-10-23] MEDS ORDERED: SPIRONOLACTONE 25 MG TABLET (FP) PO SCH (10:00)
--- NOTE | 2016-10-23 11:34 | DS ---
Physical Examination Vital Signs: Vital Signs Temperature 97.5 F L 10/23/16 09:09 Pulse Rate 102 H 10/23/16 09:09 Respiratory Rate 20 10/23/16 09:09 Blood Pressure 129/66 10/23/16 09:09 O2 Sat by Pulse Oximetry (%) 99 10/21/16 09:00 Constitutional: Yes: No Distress Eyes: Yes: WNL HENT: Yes: WNL Neck: Yes: WNL Cardiovascular: Yes: WNL Respiratory: Yes: WNL Gastrointestinal: Yes: WNL Renal/: Yes: WNL Musculoskeletal: Yes: WNL Extremities: Yes: WNL Edema: No Peripheral Pulses WNL: Yes Integumentary: Yes: WNL Wound/Incision: Yes: Clean/Dry Neurological: Yes: WNL ...Motor Strength: WNL Psychiatric: Yes: WNL Labs: CBC, BMP 10/21/16 06:25 10/23/16 06:00 Discharge Summary Reason For Visit: HEPATOCELLULAR CARCINOMA,ALCOHOLISM,ASCITTES Current Active Problems Afib (Acute) Alcoholism (Acute) Cirrhosis (Acute) Hepatocellular carcinoma (Acute) Hyponatremia (Acute) Inguinal hernia (Acute) Liver failure (Acute) Neoplasm of liver (Acute) Procedures: Principal: LIVER BIOPSY Other Procedures: LABS/CT SCAN Hospital Course: ADMITTED WORKED UP FOR LIVER DISEASE, AWAIT PATHOLOGY AND F/U WITH GI THURSDAY IN 4 DAYS FOR FURTHER WORKUP Condition: Unchanged/Unknown - Instructions Diet, Activity, Other Instructions: SEE DR TUCKER TOMORROW, GI DR SCHAFER IN 4 DAYS LOW SALT DIET Referrals: Neil Tucker MD [Primary Care Provider] - Disposition: HOME - Home Medications Comprehensive Discharge Medication List: Ambulatory Orders Amlodipine Besylate [Norvasc -] 2.5 mg PO DAILY 10/15/16 Atenolol [Tenormin -] 100 mg PO DAILY 10/15/16 Esomeprazole Mag Trihydrate [Nexium Packets] 40 mg PO BID 10/15/16 Gabapentin 300 mg PO BID 10/15/16 Naproxen/Esomeprazole Mag [Vimovo Dr 500-20 mg Tablet] 1 each PO BID 10/15/16 Tamsulosin HCl [Flomax] 0.4 mg PO DAILY 10/15/16 Folic Acid - 1 mg PO DAILY tablet 10/23/16 Lactulose (Oral Use) [Cephulac -] 20 gm PO BID #1 bottle 10/23/16 Rifaximin [Xifaxan -] 550 mg PO BID #60 tablet 10/23/16 Spironolactone [Aldactone -] 25 mg PO DAILY #30 tablet 10/23/16
[2016-10-23 13:51] VITALS: BP 119/67; PULSE 86; TEMP 97.8
--- NOTE | 2016-10-23 14:32 | PN ---
Progress Note, Physician History of Present Illness: Pt seen and examined at bedside. He is awake and appears comfortable. - Current Medication List Current Medications: Active Medications Amlodipine Besylate (Norvasc -) 5 mg PO DAILY [facility] Last Admin: 10/23/16 09:29 Dose: 5 mg Folic Acid (Folic Acid -) 1 mg PO DAILY [facility] Last Admin: 10/23/16 09:28 Dose: 1 mg Lactulose (Cephulac (Oral Use)) 20 gm PO BID [facility] Last Admin: 10/23/16 09:29 Dose: 20 gm Lorazepam (Ativan Injection -) 1 mg IM Q6H PRN PRN Reason: ANXIETY Metoprolol Tartrate (Lopressor -) 50 mg PO BID [facility] Last Admin: 10/23/16 09:28 Dose: 50 mg Multivitamins/Minerals/Vitamin C (Tab-A-Vit -) 1 tab PO DAILY [facility] Last Admin: 10/23/16 09:28 Dose: 1 tab Pantoprazole Sodium (Protonix -) 40 mg PO DAILY [facility] Last Admin: 10/23/16 09:29 Dose: 40 mg Rifaximin (Xifaxan -) 550 mg PO BID [facility] Last Admin: 10/23/16 09:29 Dose: 550 mg Spironolactone (Aldactone -) 25 mg PO DAILY [facility] Last Admin: 10/23/16 09:29 Dose: 25 mg Tamsulosin HCl (Flomax -) 0.4 mg PO DAILY@0830 [facility] Last Admin: 10/23/16 08:48 Dose: 0.4 mg - Objective Vital Signs: Vital Signs Temperature 97.8 F 10/23/16 13:49 Pulse Rate 86 10/23/16 13:49 Respiratory Rate 18 10/23/16 13:49 Blood Pressure 119/67 10/23/16 13:49 O2 Sat by Pulse Oximetry (%) 98 10/23/16 09:00 Constitutional: Yes: Calm Eyes: Yes: Conjunctiva Clear HENT: Yes: Atraumatic Cardiovascular: Yes: S1, S2 Respiratory: Yes: CTA Bilaterally Gastrointestinal: Yes: Soft Genitourinary: Yes: WNL Musculoskeletal: Yes: WNL Edema: No Neurological: Yes: Oriented Labs: CBC, BMP 10/21/16 06:25 10/23/16 06:00 INR, PTT INR 1.24 (0.82-1.09) H 10/15/16 14:07 Problem List - Problems (1) Alcoholism Code(s): F10.20 - ALCOHOL DEPENDENCE, UNCOMPLICATED (2) Cirrhosis Code(s): K74.60 - UNSPECIFIED CIRRHOSIS OF LIVER Qualifiers: Hepatic cirrhosis type: alcoholic cirrhosis Ascites presence: with ascites Qualified Code(s): K70.31 - Alcoholic cirrhosis of liver with ascites (3) Hepatocellular carcinoma Code(s): C22.0 - LIVER CELL CARCINOMA (4) Liver failure Code(s): K72.90 - HEPATIC FAILURE, UNSPECIFIED WITHOUT COMA Qualifiers: Liver failure chronicity: subacute Hepatic coma status: without hepatic coma Qualified Code(s): K72.00 - Acute and subacute hepatic failure without coma (6) Hyponatremia Code(s): E87.1 - HYPO-OSMOLALITY AND HYPONATREMIA Assessment/Plan Current Medications Generic Name Dose Route Start Last Admin Trade Name Freq PRN Reason Stop Dose Admin Amlodipine Besylate 5 mg 10/15/16 15:45 10/23/16 09:29 Norvasc - PO 5 mg DAILY THIEN Administration Folic Acid 1 mg 10/17/16 10:00 10/23/16 09:28 Folic Acid - PO 1 mg DAILY THIEN Administration Lactulose 20 gm 10/18/16 22:00 10/23/16 09:29 Cephulac (Oral Use) PO 20 gm BID THIEN Administration Lorazepam 1 mg 10/15/16 15:43 Ativan Injection - IM Q6H PRN ANXIETY Metoprolol Tartrate 50 mg 10/15/16 22:00 10/23/16 09:28 Lopressor - PO 50 mg BID THIEN Administration Multivitamins/Minerals/Vitamin C 1 tab 10/17/16 10:00 10/23/16 09:28 Tab-A-Vit - PO 1 tab DAILY THIEN Administration Pantoprazole Sodium 40 mg 10/15/16 15:45 10/23/16 09:29 Protonix - PO 40 mg DAILY THIEN Administration Rifaximin 550 mg 10/18/16 22:00 10/23/16 09:29 Xifaxan - PO 550 mg BID THIEN Administration Spironolactone 25 mg 10/23/16 10:00 10/23/16 09:29 Aldactone - PO 25 mg DAILY THIEN Administration Tamsulosin HCl 0.4 mg 10/16/16 08:30 10/23/16 08:48 Flomax - PO 0.4 mg DAILY@0830 THIEN Administration Impression 1. hyponatremia mild 2. liver cirrhosis 3. hx of etoh abuse 4. HTN Plan - sodium is stable - cont current meds - pt should follow up with a physician [place] he gets there - restrict free water to 1 liter - cont spironolactone with close monitoring of lytes - workup per GI - hyponatremia can be from liver disease Dr Ramsey
--- NOTE | 2016-10-23 17:00 | PN ---
Progress Note (short form) - Note Progress Note: Denies any complaints Last Vital Signs Temp Pulse Resp BP Pulse Ox 97.8 F 86 18 119/67 98 10/23/16 13:49 10/23/16 13:49 10/23/16 13:49 10/23/16 13:49 10/23/16 09:00 Cor: RSR, No murmurs, No gallops Lungs: Clear to P&A Abd: Soft, Normal bowel sounds, No organomegaly Ext:No significant edema Skin: No rashes, Integument intact LAbs/meds reviewed A/P 71 y/o patient with multiple hepatic lesions, concerning for hepatocellular ca Biopsy pending Given contact info to follow up closely as outpatient
--- NOTE | 2016-10-24 15:31 | PATH ---
Surgical Pathology Report Patient Name: JOSEFINA STAFFORD Med. Rec. #: [id number] /Age/Gender: 1945 (Age: 71) / M Account: [id number] Location: [address] [place] [address]/[facility] Taken: 10/20/2016 Received: 10/20/2016 Reported: 10/24/2016 Physicians: Olegario Hoover M.D. Seamus Lundy M.D. Miguel Khan M.D. Specimen(s) Received LIVER BIOPSY Clinical History Multiple liver masses, alcoholic cirrhosis Final Diagnosis LIVER, BIOPSY: CONSISTENT WITH HEPATOCELLULAR CARCINOMA, MODERATELY TO POORLY DIFFERENTIATED, WITH EXTENSIVE NECROSIS (SEE COMMENT). Comment: The biopsy shows extensively necrotic neoplasm with focally viable tumor growing in nested and trabecular patterns. Immunohistochemical stains performed and interpreted at [facility] show that tumor cells are negative for CK7, CK20, TTF1, chromogranin, and synaptophysin immunostains. Additional [facility] [place] ([id number]) show that tumor cells are positive for Glypican-3 and CAM5.2 immunostains and are negative for Arginase-1, CDX2, Ca19.9, CD56, and NKX3.1 immunostains. The morphologic findings and immunoprofile are consistent with hepatocellular carcinoma, moderately to poorly differentiated, with extensive necrosis. The case was initially discussed with Dr. Lundy on 10/22/16. Electronically Signed Shaoib Pickett M.D. Addendum Reported: 10/27/2016 Addendum Diagnosis Additional immunohistochemical stain for HepPar1 performed at the [facility] [place] ([id number]) and interpreted the [facility] shows the following: The tumor cells are positive for Heppar1 supporting the interpretation above. Shoaib Pickett M.D. Gross Description Received in formalin, labeled "liver tissue" multiple cylindrical fragments of owens-brown tissue averaging 0.3-0.7 cm in length and less than 0.1 cm in diameter. Submitted entirely in one cassette. AF/10/20/2016 final/10/20/2016
== END 2016-10-23 18:24 | disposition home or self-care (01) | DRG 436 ==
LOC: JER 13:29 → JERBED 16:08 → J5S 17:22
PROVIDERS: ADMIT Family Medicine; ATTEND Family Medicine
PROC: 0FB03ZX Excision of Liver, Percutaneous Approach, Diagnostic (ICD-10-PCS; principal; 2016-10-20)
DX: C22.0 Liver cell carcinoma (principal); E87.1 Hypo-osmolality and hyponatremia; I10 Essential (primary) hypertension; F10.20 Alcohol dependence, uncomplicated; K72.90 Hepatic failure, unspecified without coma; K40.90 Unilateral inguinal hernia, without obstruction or gangrene, not specified as recurrent; K70.31 Alcoholic cirrhosis of liver with ascites; I48.91 Unspecified atrial fibrillation
CPT/HCPCS: 36415; 47000; 70450-TC; 74176-TC; 74181-TC; 80048; 80053; 80076; 80307; 81003; 82105; 82140; 82378; 82436; 82533; 82550; 83690; 83930; 83935; 84133; 84300; 84443; 84484; 85025; 85027; 85610; 85730; 86301; 86704; 86706; 86708; 86803; 87040; 87086; 87340; 88307-TC; 88341-TC; 93005; 93010; 97116-GP; 97161-GP; 99283-25